=== PATIENT | female | born 1990 | race Caucasian/White ===

== ENCOUNTER 2017-06-05 20:37 | Inpatient (IN) ==
[2017-06-05 22:38] LABS: MANUAL DIFF NEEDED? NO
[2017-06-05 22:47] LABS: BASO% 0.1 % (0.0-0.8); EOS# 0.07 X1000 (0.0-0.7); EOS% 0.5 % (0.0-10.0); HEMATOCRIT 31.7 % (37.0-47.0); HEMOGLOBIN 10.9 g/dL (12.0-16.0); IMM GRAN# 0.09 X1000 (0.0-0.04); IMM GRAN% 0.6 % (0.0-0.5); LYMPH# 2.43 X1000 (1.2-3.4); LYMPH% 17.1 % (20.5-51.1); MCH 32.4 PG (27-31); MCHC 34.4 g/dL (33-37); MCV 94.3 FL (81-99); MONO# 0.84 X1000 (0.11-0.59); MONO% 5.9 % (1.7-9.3); MPV 11.8 FL (7.4-10.4); NEUT% 75.8 % (42.2-75.2); PLT 151 X1000 (130-400); RBC 3.36 XMIL (4.2-5.4)
[2017-06-05] MEDS ORDERED: ZOFRAN IV ONE (22:57)
[2017-06-05] MEDS ORDERED: STADOL IV ONE (22:57)
[2017-06-05] MEDS ORDERED: LR 1,000 ML IV ONE (23:03)
[2017-06-06 02:20] LABS: MANUAL DIFF NEEDED? NO
[2017-06-06 02:31] LABS: BASO% 0.1 % (0.0-0.8); EOS# 0.05 X1000 (0.0-0.7); EOS% 0.4 % (0.0-10.0); HEMATOCRIT 30.6 % (37.0-47.0); HEMOGLOBIN 10.4 g/dL (12.0-16.0); IMM GRAN# 0.09 X1000 (0.0-0.04); IMM GRAN% 0.6 % (0.0-0.5); LYMPH# 2.12 X1000 (1.2-3.4); LYMPH% 15.1 % (20.5-51.1); MCH 32.3 PG (27-31); MONO# 0.83 X1000 (0.11-0.59); MONO% 5.9 % (1.7-9.3); MPV 11.8 FL (7.4-10.4); NEUT% 77.9 % (42.2-75.2); PLT 129 X1000 (130-400); RBC 3.22 XMIL (4.2-5.4)
[2017-06-06 02:49] LABS: AGAP 11; ALBUMIN 3.3 g/dL (3.5-5.0); ALKALINE PHOSPHATASE 75 U/L (32-104); BUN 6 mg/dL (8-22); CALCIUM 8.5 mg/dL (8.8-10.2); CHLORIDE 106 mmol/L (98-107); COSMO 272; GOT 14 U/L (10-30); GPT 11 U/L (10-36); POTASSIUM 3.6 mmol/L (3.5-5.1); SODIUM 137 mmol/L (136-145); TCO2 20 mmol/L (25-35); TOTAL BILIRUBIN < 0.15 mg/dL (0.20-1.00); TOTAL PROTEIN 5.8 g/dL (6.3-8.3)
[2017-06-06] MEDS ORDERED: STADOL IV ONE (03:37)
[2017-06-06] MEDS: LR 1,000 ML IV SCH ×2 (04:19→20:48)
[2017-06-06] MEDS: CELESTONE SOLUSPAN IM ONE (04:19)
[2017-06-06 06:31] LABS: BASO% 0.1 % (0.0-0.8); EOS# 0.04 X1000 (0.0-0.7); EOS% 0.3 % (0.0-10.0); HEMATOCRIT 31.8 % (37.0-47.0); HEMOGLOBIN 10.5 g/dL (12.0-16.0); IMM GRAN# 0.06 X1000 (0.0-0.04); IMM GRAN% 0.4 % (0.0-0.5); LYMPH# 1.34 X1000 (1.2-3.4); LYMPH% 8.8 % (20.5-51.1); MANUAL DIFF NEEDED? YES; MCH 31.3 PG (27-31); MCV 94.9 FL (81-99); MONO# 0.58 X1000 (0.11-0.59); MONO% 3.8 % (1.7-9.3); MPV 11.7 FL (7.4-10.4); NEUT% 86.6 % (42.2-75.2); PLT 143 X1000 (130-400); RBC 3.35 XMIL (4.2-5.4)
[2017-06-06 06:47] LABS: LYMPHS 4 % (21-51)
[2017-06-06] MEDS: ZOFRAN IV PRN (09:01)
[2017-06-06] MEDS: STADOL IV PRN ×3 (09:02→20:48)
--- NOTE | 2017-06-06 11:33 | HISTORY AND PHYSICAL ---
DIAGNOSES: 1. 33 and 6/7th weeks . 2. Possible partial abruption. SUMMARY: Bailee Pope is a 26-year-old, 3, para 0-1-1-1. She previously had a section at 33 weeks for preeclampsia. She was seen in Labor and Delivery on 06/05/2017 after she had an elevated blood pressure at [facility]. She came to Labor and Delivery for evaluation. Her uric acid was 3.1. AST 15, ALT 11. Her platelet count was a 141,000, and her hemoglobin and hematocrit was 11.2/33.3. Urinalysis showed a trace of protein. Her blood pressures were stable and it was more suspicious of -induced hypertension than preeclampsia, and she was discharged to follow up in the office. Shortly after she went home, she sat on the toilet to have a bowel movement and had a sudden gush of blood. She returned to Labor and Delivery immediately. At that time, she was not having any contractions and heart tones showed accelerations with variability. No decelerations were noted. Her abdomen was tender to palpation. The patient was extremely anxious at this time. A Rom + test was performed which was positive; however, literature research shows that rom + test should not be performed when there is gross blood as you get false/positives. I did an ultrasound which showed vertex presentation and normal amniotic fluid level. Her cervix is closed, 80% effaced , and was vertex at 0 station. We admitted her for evaluation and her initial H and H was 10.9/31.7. Platelet count 151,000 and fibrinogen 441. Four hours later, hemoglobin and hematocrit was 10.4/30.6, platelets 129,000 and fibrinogen 389. AST was 14. ALT 11 at this time. She continued to have some pain and complaints, however, no contractions were noted. Her abdomen is nontender on palpation. There are no signs of distress. I have repeated the labs once again this morning with hemoglobin and hematocrit being 10.5/31.8. Platelet count is 143,000. Fibrinogen is 433. She is having some occasional contractions. Her last examination did not show any cervical change. heart tones remained category I. There are no decelerations with contractions. She is being admitted for further evaluation. My working diagnosis is a partial placental abruption. We have given her steroids, and she is blood type O-negative, and I am going to give her a dose of RhoGAM. PAST MEDICAL HISTORY: She has had a previous section for preeclampsia. Otherwise, no chronic medical or surgical illnesses. CURRENT MEDICATIONS: vitamins. ALLERGIES: None. PHYSICAL EXAMINATION: GENERAL: Shows an anxious female. VITAL SIGNS: Stable. She is afebrile. CARDIOVASCULAR: Regular rate and rhythm without murmurs, rubs, or gallops. PULMONARY: Clear. BREASTS: No masses. ABDOMEN: Nontender. Cervix is as above. EXTREMITIES: No clubbing, edema, or cyanosis. IMPRESSION: Possible partial abruption. PLAN: We will continue to monitor her. We will hopefully get a second dose of betamethasone, and I am going to go ahead and give her RhoGAM. She was having some mild contractions and I do not feel comfortable tocolyzing. If there are signs of distress or if she begins bleeding heavy again, we will proceed with repeat . cc: Tyshawn Rushing MD MTDD
[2017-06-06 14:06] LABS: BASO% 0.1 % (0.0-0.8); HEMATOCRIT 34.4 % (37.0-47.0); HEMOGLOBIN 11.6 g/dL (12.0-16.0); IMM GRAN% 0.5 % (0.0-0.5); LYMPH# 1.33 X1000 (1.2-3.4); LYMPH% 6.4 % (20.5-51.1); MANUAL DIFF NEEDED? YES; MCH 32.4 PG (27-31); MCHC 33.7 g/dL (33-37); MCV 96.1 FL (81-99); MONO% 2.4 % (1.7-9.3); MPV 11.7 FL (7.4-10.4); NEUT% 90.6 % (42.2-75.2); PLT 162 X1000 (130-400); RBC 3.58 XMIL (4.2-5.4)
[2017-06-06 14:11] LABS: LYMPHS 4 % (21-51)
[2017-06-06] MEDS ORDERED: AMBIEN PO PRN (19:08)
[2017-06-06] MEDS: AMBIEN PO PRN (21:41)
[2017-06-07] MEDS: CELESTONE SOLUSPAN IM ONE (04:40)
[2017-06-07 05:58] LABS: MANUAL DIFF NEEDED? NO
[2017-06-07 06:04] LABS: BASO% 0.1 % (0.0-0.8); EOS# 0.01 X1000 (0.0-0.7); EOS% 0.1 % (0.0-10.0); HEMATOCRIT 32.6 % (37.0-47.0); HEMOGLOBIN 10.9 g/dL (12.0-16.0); IMM GRAN% 0.5 % (0.0-0.5); LYMPH# 1.96 X1000 (1.2-3.4); MCH 32.2 PG (27-31); MCHC 33.4 g/dL (33-37); MCV 96.2 FL (81-99); MONO# 1.38 X1000 (0.11-0.59); MONO% 7.1 % (1.7-9.3); MPV 12.3 FL (7.4-10.4); NEUT% 82.2 % (42.2-75.2); PLT 177 X1000 (130-400); RBC 3.39 XMIL (4.2-5.4)
[2017-06-07] MEDS: STADOL IV PRN ×4 (07:21→22:39)
[2017-06-07] MEDS: LR 1,000 ML IV SCH (09:13)
[2017-06-07] MEDS: PEPCID PO SCH (12:51)
[2017-06-07] MEDS ORDERED: LR 1,000 ML IV SCH (16:26)
[2017-06-07] MEDS ORDERED: BICITRA PO ONE (18:06)
[2017-06-07] MEDS: ZOFRAN IV PRN (22:39)
[2017-06-07] MEDS: AMBIEN PO PRN (22:39)
[2017-06-08] MEDS: PEPCID PO SCH (01:42)
[2017-06-08] MEDS: STADOL IV PRN ×3 (01:48→09:42)
[2017-06-08] MEDS ORDERED: PRECARE PO ONE ×2 (07:34→10:00)
[2017-06-08] MEDS ORDERED: PERICOLACE PO ONE ×2 (07:34→10:00)
[2017-06-08] MEDS ORDERED: MILK OF MAGNESIA PO ONE (10:53)
[2017-06-08 11:41] VITALS: BP 128/78
== END 2017-06-08 14:10 | disposition home or self-care (01) ==
LOC: P.NBC 20:37 → P.LD 20:38 → P.DIRADM 20:40 → INTOOBSV 20:40 → OBSVTOIN 20:40 → P.LD 06-06 14:59 → EDCLIBED 06-06 15:00 → P.NBC 06-08 14:10 → UNDODISIN 06-08 14:10 → P.LD 06-11 15:11 → P.DIRADM 06-11 15:12
PROVIDERS: ADMIT Obstetrics & Gynecology; ATTEND Obstetrics & Gynecology

== ENCOUNTER 2017-06-09 06:43 | Inpatient (IN) ==
[2017-06-09] MEDS ORDERED: BRETHINE SUBQ ONE (07:21)
[2017-06-09 07:24] LABS: URINE SOURCE VOIDED
[2017-06-09 07:26] LABS: COLOR YELLOW
[2017-06-09 07:27] LABS: BILIRUBIN URINE NEGATIVE (NEGATIVE); CLARITY CLOUDY (CLEAR); GLUCOSE URINE NEGATIVE (NEGATIVE); SP GRAVITY URINE 1.005
[2017-06-09 07:28] LABS: BLOOD URINE 4+ (NEGATIVE); LEUKOCYTES URINE 1+ (NEGATIVE); NITRITE URINE NEGATIVE (NEGATIVE); PROTEIN URINE NEGATIVE (NEGATIVE); UROBILINOGEN URINE NORMAL
[2017-06-09] MEDS ORDERED: REGLAN PO ONE (07:46)
[2017-06-09] MEDS ORDERED: PEPCID PO ONE (07:46)
[2017-06-09] MEDS: LR 1,000 ML IV SCH ×2 (08:13→08:15)
[2017-06-09] MEDS ORDERED: BICITRA PO ONE (08:15)
[2017-06-09] MEDS ORDERED: PEPCID IV ONE (08:15)
[2017-06-09] MEDS ORDERED: CYTOTEC PO PRN (08:19)
[2017-06-09] MEDS ORDERED: DEMEROL PO PRN ×2 (08:19)
[2017-06-09] MEDS ORDERED: PITOCIN 20 UNITS/LR 20 UNITS/1,000 ML IV.SOLN IV ONE (08:19)
[2017-06-09] MEDS ORDERED: BOOSTRIX VACCINE IM ONE (08:19)
[2017-06-09] MEDS ORDERED: MYLICON PO PRN (08:19)
[2017-06-09] MEDS ORDERED: PERCOCET-5 PO PRN (08:19)
[2017-06-09] MEDS ORDERED: PITOCIN IM PRN (08:19)
[2017-06-09] MEDS ORDERED: DULCOLAX PR PRN (08:19)
[2017-06-09] MEDS ORDERED: HYDROXYZINE IM PRN (08:19)
[2017-06-09] MEDS ORDERED: DEMEROL IM PRN (08:19)
[2017-06-09] MEDS ORDERED: PHENERGAN IM PRN (08:19)
[2017-06-09] MEDS ORDERED: M-M-R II VACCINE SUBQ ONE (08:19)
[2017-06-09] MEDS: KEFZOL 1 GM/D5W 1 GM/50 ML IVPB IV PRN ×2 (08:29→08:54)
[2017-06-09 08:30] LABS: MANUAL DIFF NEEDED? NO
[2017-06-09] MEDS ORDERED: DURAMORPH ONE (08:31)
[2017-06-09 08:32] LABS: BASO% 0.3 % (0.0-0.8); EOS# 0.05 X1000 (0.0-0.7); EOS% 0.4 % (0.0-10.0); HEMATOCRIT 31.9 % (37.0-47.0); HEMOGLOBIN 10.9 g/dL (12.0-16.0); IMM GRAN# 0.36 X1000 (0.0-0.04); IMM GRAN% 2.6 % (0.0-0.5); LYMPH# 3.11 X1000 (1.2-3.4); LYMPH% 22.9 % (20.5-51.1); MCH 32.2 PG (27-31); MCHC 34.2 g/dL (33-37); MCV 94.4 FL (81-99); MONO# 1.37 X1000 (0.11-0.59); MONO% 10.1 % (1.7-9.3); MPV 11.8 FL (7.4-10.4); NEUT% 63.7 % (42.2-75.2); PLT 140 X1000 (130-400); RBC 3.38 XMIL (4.2-5.4)
[2017-06-09 08:43] LABS: UR AMPHETAMINES QUAL NONE DETECTED (NONE DETECT); UR BARBITUATES QUAL NONE DETECTED (NONE DETECT); UR BENZODIAZEPIN QUAL NONE DETECTED (NONE DETECT); UR CANNABINOIDS QUAL NONE DETECTED (NONE DETECT); UR COCAINE QUAL NONE DETECTED (NONE DETECT); UR MDMA QUAL NONE DETECTED (NONE DETECT); UR METHADONE QUAL NONE DETECTED (NONE DETECT); UR METHAMPHETAMINE QUAL NONE DETECTED (NONE DETECT); UR OPIATES QUAL NONE DETECTED (NONE DETECT); UR OXYCODONE QUAL NONE DETECTED (NONE DETECT); UR PCP QUAL NONE DETECTED (NONE DETECT); UR TCA QUAL NONE DETECTED (NONE DETECT)
--- NOTE | 2017-06-09 08:55 | HISTORY AND PHYSICAL ---
HISTORY OF PRESENT ILLNESS: The patient is a 26-year-old female 3, para 1-0-1-1 who has an EDC putting her at 34-1/2 weeks. She comes in at this time in labor for repeat for delivery. She had a previous at 33 weeks for severe -induced hypertension. She has been in labor and delivery over the weekend with increasing pain, bleeding, irregular contractions, and was noted to be closed at that time. She comes in at this time with contractions, much more pain, and noted to be 3 cm dilated. She is, therefore, admitted at this time for repeat for delivery. She did receive steroids this weekend because of her contractions of prematurity. She denies any other difficulties. She did have diet-controlled gestational diabetes, also, during this . PAST MEDICAL HISTORY: for severe -induced hypertension and HELLP syndrome. MEDICINES: vitamins. ALLERGIES: None. PHYSICAL EXAMINATION: GENERAL: Well-developed female. HEENT: Benign. NECK: Supple. LUNGS: Clear. CARDIOVASCULAR: Regular rate and rhythm. ABDOMEN: Soft, nontender. EXTREMITIES: Without clubbing, cyanosis, or edema. ASSESSMENT AND PLAN: A 34-1/2-week intrauterine , previous section in labor admitted at this time for repeat section for delivery. Questions were answered. Risks were explained. cc: Marlon Li MD
[2017-06-09 09:10] LABS: ALBUMIN 3.6 g/dL (3.5-5.0); ALKALINE PHOSPHATASE 86 U/L (32-104); DIRECT BILIRUBIN < 0.20 mg/dL (0.00-0.20); GOT 19 U/L (10-30); GPT 14 U/L (10-36); TOTAL PROTEIN 6.4 g/dL (6.3-8.3)
[2017-06-09] MEDS ORDERED: PITOCIN ONE (09:22)
[2017-06-09] MEDS ORDERED: NEO-SYNEPHRINE ONE (09:23)
[2017-06-09] MEDS ORDERED: BENADRYL IV PRN (09:59)
[2017-06-09] MEDS ORDERED: ZOFRAN ODT PO PRN (09:59)
[2017-06-09] MEDS ORDERED: NARCAN INJ PRN (09:59)
[2017-06-09] MEDS ORDERED: ZOFRAN IV PRN ×2 (09:59)
--- NOTE | 2017-06-09 10:00 | OPERATIVE NOTE ---
PROCEDURE DATE : 06/09/2017 SURGEON: Dr. Marlon Li PREOPERATIVE DIAGNOSES: 1. 34 week intrauterine . 2. Previous section. 3. Labor. POSTOPERATIVE DIAGNOSES: 1. 34 week intrauterine . 2. Previous section. 3. Labor. 4. Placental abruption. PROCEDURE PERFORMED: Repeat low transverse section. ANESTHESIA: Spinal. FINDINGS: The patient had a male born, weight 5 pounds 8 ounces, Apgars were 8 and 8. The patient did have some clot inside the uterus and by the placenta, consistent with placental abruption, at best probably 20% to 25%. DESCRIPTION OF PROCEDURE: The patient was taken to the operating room and underwent spinal anesthesia. She was given Ancef IV. She was prepped and draped in sterile fashion. Kim catheter was inserted in the bladder. Pump hose and stockings were place. We made a Pfannenstiel skin incision at previous incision site, sharply dissected down to the fascia. The fascia was dissected off the rectus muscle. The peritoneum was entered and dissected down. We created the bladder flap. Low transverse incision was made. She was noted to have some blood in between the amniotic sac and the uterus at this time and old clot. The was delivered using fundal pressure. We allowed the cord to not be clamped for about a minute and made sure we moved some of the blood into the fetus because of the premature size and abruption pattern. At this time the cord was clamped, and the baby was handed to pediatrics who were in attendance. Cord blood was obtained. Placenta was removed and sent to pathology for identification. Again, it looked as though she had a partial abruption going on in the anterior aspect of the placenta. The uterus was cleaned with a clean lap. Incision was closed with #1 chromic in an interlocking fashion. The uterus was put back in its anatomic position. Good hemostasis was noted throughout after all pedicles were inspected and irrigation was done. The rectus muscle was closed with 0 chromic suture. Hemostasis was maintained with Bovie. Fascia was closed with #1 Vicryl. Hemostasis was maintained with the Bovie, and the skin was closed with 4-0 Biosyn and Steri-Strips. Estimated blood loss is 500 mL. Mother and doing well at this time. cc: Marlon Li MD
[2017-06-09] MEDS ORDERED: TORADOL ONE (10:01)
[2017-06-09] MEDS: TORADOL IV PRN ×3 (10:11→22:39)
[2017-06-09] MEDS: MYLICON PO SCH ×4 (12:08→20:33)
[2017-06-09] MEDS: MORPHINE IV PRN ×4 (12:17→22:51)
[2017-06-09] MEDS: HYDROXYZINE PO PRN ×2 (18:42→22:51)
[2017-06-09] MEDS: PITOCIN 10 UNITS/LR 10 UNIT/1,000 ML IV.SOLN IV SCH (18:43)
[2017-06-09] MEDS: PERICOLACE PO SCH (20:33)
[2017-06-09] MEDS: AMBIEN PO PRN (22:39)
[2017-06-10] MEDS: PERCOCET-10 PO PRN ×6 (02:33→22:06)
[2017-06-10] MEDS: PITOCIN 10 UNITS/LR 10 UNIT/1,000 ML IV.SOLN IV SCH (02:37)
[2017-06-10] MEDS: TORADOL IV PRN (04:32)
[2017-06-10 06:10] LABS: HEMATOCRIT 29.5 % (37.0-47.0); MCH 31.9 PG (27-31); MCHC 33.9 g/dL (33-37); MCV 94.2 FL (81-99); MPV 12.7 FL (7.4-10.4); RBC 3.13 XMIL (4.2-5.4)
[2017-06-10] MEDS ORDERED: LR 1,000 ML IV SCH (08:19)
[2017-06-10] MEDS: MYLICON PO SCH ×4 (08:32→20:14)
[2017-06-10] MEDS: MOTRIN PO PRN ×2 (10:36→17:56)
[2017-06-10] MEDS ORDERED: PNEUMOVAX 23 IM ONE (19:15)
[2017-06-10] MEDS: PERICOLACE PO SCH (20:14)
[2017-06-10] MEDS: AMBIEN PO PRN (22:06)
[2017-06-11] MEDS: PERCOCET-10 PO PRN ×4 (02:11→15:18)
[2017-06-11] MEDS: MOTRIN PO PRN ×2 (02:11→11:39)
[2017-06-11 07:45] VITALS: BP 138/93
[2017-06-11] MEDS: MYLICON PO SCH ×4 (07:51→15:18)
--- NOTE | 2017-06-11 10:11 | DISCHARGE SUMMARY ---
ADMISSION DATE: 06/09/2017 DISCHARGE DATE: 06/11/2017 ADMITTING DIAGNOSES: 1. A 34-and half week . 2. Pre-term labor. 3. Previous . PRINCIPAL DIAGNOSES: 1. A 34-and crum week . 2. Pre-term labor. 3. Previous . 4. Placental abruption. PROCEDURE: Repeat . SUMMARY: Bailee Pope is a 26-year-old, 3, para 1-0-1-1, who had her first delivery at 33 weeks due to preeclampsia and HELLP syndrome. She had been in the hospital over the weekend with bleeding and felt that she had a small abruption. She was discharged after several days of observation but returned having worsening pain and pre term labor. She was [address] Li therefore performed a repeat low transverse delivering a 5 pound 8 ounce male infant with Apgars of 8 at 1 minute and 8 at 5 minutes. There was a 20-25% abruption by his estimation. There were no intraoperative complications. Postoperatively, the patient has done well. She has remained afebrile. The vital signs have been stable. Laboratory evaluation showed an admission hemoglobin and hematocrit of 10.9/31.9 with a platelet count of 140,000. Discharge hemoglobin and hematocrit is 10/29.5, platelet count 139,000. On the day of discharge, cardiac and pulmonary examinations normal. Bowel and bladder function was normal. Incision was clean and dry. She is having scant vaginal bleeding. Mrs. Pope will be discharged today and we will see her back in the office in 1 week. Routine discharge instructions, activity limitations, and precautions were discussed. She will continue vitamins. We will send her home with Motrin and Percocet 10 #30 for postoperative pain reduction. cc: MD Marlon Portillo MD
== END 2017-06-11 16:10 | disposition home or self-care (01) ==
LOC: P.OPLD 06:43 → P.LD 06:44 → P.WC 11:39
PROVIDERS: ADMIT Obstetrics & Gynecology; ATTEND Obstetrics & Gynecology

== ENCOUNTER 2019-03-08 03:45 | Inpatient (IN) ==
[2019-03-08 05:12] LABS: BILIRUBIN URINE NEGATIVE (NEGATIVE); BLOOD URINE 1+ (NEGATIVE); CLARITY SL. CLOUDY (CLEAR); COLOR YELLOW; GLUCOSE URINE NEGATIVE (NEGATIVE); KETONE URINE 1+(Small) mg/dL (NEGATIVE); LEUKOCYTES URINE TRACE (NEGATIVE); NITRITE URINE NEGATIVE (NEGATIVE); PROTEIN URINE 2+(100 mg/dL) mg/dL (NEGATIVE); UROBILINOGEN URINE NORMAL
[2019-03-08 05:15] LABS: URINE BACTERIA 4+ /HFP; URINE RBC <10 /HPF (<10); URINE WBC <10 /HPF (<10)
[2019-03-08 05:17] LABS: URINE EPITHELIAL CELLS >10 /HPF (<10); URINE SOURCE CLEAN CATCH
--- NOTE | 2019-03-08 05:24 | PROVIDER DOCUMENTATION ---
HPI-Abdominal Pain/GI Problem - General Chief Complaint: Abdominal Pain Stated Complaint: VOMITING Time Seen by Provider: 03/08/19 05:13 Source: patient Allergies/Adverse Reactions: Patient Allergies Allergy/AdvReac Type Severity Reaction Status Date / Time No Known Allergies Allergy Verified 01/17/18 20:03 Home Medications: Home Medication List Medication Instructions Recorded Confirmed Last Taken Type NK [No Home Medications] 03/08/19 03/08/19 Unknown History - History of Present Illness-ABD Nature of Presenting Problems: thursday started to vomit and has been vomiting frequently no bm no blood no dsuria or hematuria no hematochezio no hematemesis Review of Systems - Adult - REVIEW OF SYSTEMS - ADULT Constitutional: reports: no symptoms reported Eyes: reports: no symptoms reported Ears, Nose, Mouth & Throat: reports: no symptoms reported Cardiovascular: reports: no symptoms reported Respiratory: reports: no symptoms reported Gastrointestinal: reports: see HPI Genitourinary: reports: no symptoms reported Musculoskeletal: reports: no symptoms reported Integumentary: reports: no symptoms reported Neurological: reports: no symptoms reported Psychiatric: reports: no symptoms reported Endocrine: reports: no symptoms reported Hematologic/Lymphatic: reports: no symptoms reported Allergic/Immunologic: reports: no symptoms reported Past History - Adult - PAST MEDICAL HISTORY-ADULT Review of Records: reports: Medications Reviewed Major Childhood Illnesses: reports: denies history Cardiovascular: reports: denies history Respiratory: reports: denies history Gastrointestinal: reports: denies history Obstetrical/Gynecological: reports: denies history Genitourinary: reports: kidney disease Musculoskeletal: reports: denies history Neurological: reports: denies history Endocrine/Immune: reports: denies history Other Conditions: reports: denies history - PRIOR SURGERIES/PROCEDURES Surgical/Procedure History: reports: - PRIOR HOSPITALIZATIONS Prior Hospitalizations: reports: none - IMMUNIZATION STATUS Childhood Immunizations: See Nurse Assessment Flu Vaccine: See Nurse Assessment - FAMILY HISTORY Family History: reviewed, not pertinent Physical Exam-General - PHYSICAL EXAM-ADULT Initial Vital Signs Reviewed: Yes - CONSTITUTIONAL General Appearance: moderate distress - EYES Eyes: PERRL/EOMI, pink conjunctivae - HEAD, EARS, NOSE, MOUTH & THROAT HENMT: normocephalic/atraumatic, moist mucous membranes, normal ENT inspection, pharynx normal - NECK Neck: full range of motion, supple - RESPIRATORY Respiratory: lungs clear, normal breath sounds, no pleuratic chest pain, no respiratory distress, no accessory muscle use - CARDIOVASCULAR Cardiovascular: regular rate, rhythm, no edema, no gallop, no murmur - GASTROINTESTINAL (ABDOMEN) Abdominal Exam: soft, other (BS decreased, tender RUQ) - MUSCULOSKELETAL Back Exam: normal inspection, no CVA tenderness, no vertebral tenderness Extremity: normal range of motion, non-tender - SKIN Integumentary: normal color, normal turgor, warm/dry - NEUROLOGIC Neurologic: lining scrubber II-XII nml as tested, grossly normal, no motor/sensory deficits - PSYCHIATRIC Psych/Mental Status: normal mood/affect, normal thought content, normal thought process, oriented x 3 Progress - PLAN OF CARE/RESULTS Progress/Plan/Lab Results: Vital Signs - 8 hr 03/08/19 03:54 Temperature 98.3 F Pulse Rate 113 H Respiratory Rate 20 Blood Pressure 162/119 O2 Sat by Pulse Oximetry 99 Bedside Urine ED: Urine Bedside Start: 03/08/19 04:06 Freq: ORDERED Status: Active Protocol: Activity Type Activity Date Activity User E-Sign Co-Sign Detail Recorded Client Recorded Date Recorded By Document 03/08/19 04:06 [id number] 03/08/19 04:27 [id number] 03/08/19 04:06 Point of Care [Bedside Point of Care] -Lot # [id number] - Results Negative -Control Line Visible? Yes Laboratory Results - last 24 hr 03/08/19 04:25 Urine Color YELLOW Urine Clarity SL. CLOUDY A Urine pH 6.0 Ur Specific [place] 1.020 Urine Protein 2+(100 mg/dL) A Urine Ketones 1+(Small) A Urine Blood 1+ A Urine Nitrite NEGATIVE Urine Bilirubin NEGATIVE Urine Urobilinogen NORMAL Urine WBC TRACE A Urine Glucose NEGATIVE Orders Category Date Time Status ED: Urine Bedside ORDERED Care 03/08/19 04:06 Active Saline Loc NOW Care 03/08/19 04:05 Active NPO Diet 03/08/19 04:09 Active AMYLASE [CHEM] Stat Lab 03/08/19 04:25 Ordered CBC WITH DIFF [HEME] Stat Lab 03/08/19 04:25 Results COMPREHENSIVE METABOLIC PANEL [CHEM] Stat Lab 03/08/19 04:25 Ordered LIPASE [CHEM] Stat Lab 03/08/19 04:[address] W/POSS RFLX CULT [URINALYSIS] Stat Lab 03/08/19 04:25 Results Result Diagrams: 03/08/19 05:17 03/08/19 05:17 - REASSESSMENT Reassessment #1 Time Reassessed: 09:32 (assumed care @ shift change. Has had constant RUQ pain, since Sat. N/V, not laura po intake. On exam, pt uncomfortable, BS are sl decreased, thender mod on RUQ, mild LLQ) Status: unchanged - CT/MRI 1 CT Study: Abdomen Impression: Abnormal (IMPRESSION: 1.Distended gallbladder. No evidence for pericholecystic inflammation. 2.Mildly distended fluid-filled small bowel left upper quadrant. This may be seen with enteritis. Clinical follow-up recommended. This exam was performed using automated exposure control, adjustment of mA or kV according to patient size, and/or use of iterative reconstruction technique. Electronically signed by Viry Sue 03/08/2019 8:31 AM) - CONSULTS/PCP/HOSPITALIST Notification #1 *Consult/PCP/Hospitalist*: Carole Time Discussed: 10:37 Reason/Comments: admit to him@ [facility] - CHANGE OF SHIFT REPORT (ED Provider) 1 Report Given and Care Transferred to:: Dr Causey 7:05 ct Time of Transfer: 06:59 Items Pending: Labs, CT/MRI Results Departure - Departure Date of Disposition Decision: 03/08/19 Time of Disposition Decision: 10:37 DIAGNOSIS: Cholecystitis, acute Disposition: ADMITTED INPATIENT 09 Certified Medical Emergency: Emergent Condition: Good Additional Freetext Instructions: ED Follow Up Instructions: You have been treated by a care provider in the Emergency Department. These instructions are being provided to you so you can have an understanding of how to care for yourself upon discharge. Upon discharge from the Emergency Department, you are responsible for making arrangements for follow-up care by a physician of your choice. Take all prescribed medications as directed. Return to the Emergency Department immediately for any new or worsening symptoms. You may call the Physician Referral phone number at [phone] to obtain a list of Physicians who are taking new patients. Referrals and Follow-Ups: Zaki Sandhu [Primary Care Provider] - - Critical Care Note This patient required my direct & personal management of CC.: No Attestation - Physician/ LAXMI Attestation Patient care was provided by Advanced Practice Provider:: No The physician spent face to face time with patient:: Yes Advanced Practice Provider documentation review:: Supervising physician onsite and consulted in the evaluation and care of this patient. The physician did have a face to face encounter with the patient.
[2019-03-08 05:38] LABS: BASO# 0.02 X1000 (0.0-0.2); BASO% 0.1 % (0.0-0.8); HEMOGLOBIN 16.1 g/dL (12.0-16.0); IMM GRAN# 0.05 X1000 (0.0-0.04); IMM GRAN% 0.2 % (0.0-0.5); LYMPH# 1.36 X1000 (1.2-3.4); LYMPH% 6.6 % (20.5-51.1); MCH 31.6 PG (27-31); MCHC 35.8 g/dL (33-37); MCV 88.4 FL (81-99); MONO# 1.92 X1000 (0.11-0.59); MONO% 9.4 % (1.7-9.3); MPV 11.3 FL (7.4-10.4); NEUT# 17.11 X1000 (1.4-6.5); NEUT% 83.7 % (42.2-75.2); PLT 272 X1000 (130-400); RBC 5.09 XMIL (4.2-5.4); RDW 12.5 % (11.5-14.5); WBC 20.46 X1000 (4.8-10.8)
[2019-03-08 05:50] LABS: ESTIMATED GFR > 60
[2019-03-08 06:00] LABS: AGAP 17; ALBUMIN 5.2 g/dL (3.5-5.0); ALKALINE PHOSPHATASE 83 U/L (32-104); AMYLASE 62 U/L (20-200); BUN 10 mg/dL (8-22); CALCIUM 10.4 mg/dL (8.8-10.2); CHLORIDE 89 mmol/L (98-107); COSMO 277; CREATININE 0.8 mg/dL (0.5-0.9); GLUCOSE 141 mg/dL (70-104); GOT 17 U/L (10-30); GPT 14 U/L (10-36); LIPASE 16 U/L (13-60); POTASSIUM 3.3 mmol/L (3.5-5.1); SODIUM 138 mmol/L (136-145); TCO2 32 mmol/L (25-35); TOTAL PROTEIN 8.3 g/dL (6.3-8.3)
[2019-03-08 06:08] LABS: BANDS 4 % (0-1); LYMPHS 8 % (21-51); MONO 4 % (1-9); POIKILOCYTOSIS 1+; SEGS 84 % (42-75)
[2019-03-08 06:09] LABS: LARGE PLATELETS OCCASIONAL; STOMATOCYTES 1+
[2019-03-08 06:23] LABS: UR AMPHETAMINES QUAL NONE DETECTED (NONE DETECT); UR BARBITUATES QUAL NONE DETECTED (NONE DETECT); UR BENZODIAZEPIN QUAL PRESUMPTIVE POSITIVE (NONE DETECT); UR CANNABINOIDS QUAL PRESUMPTIVE POSITIVE (NONE DETECT); UR COCAINE QUAL NONE DETECTED (NONE DETECT); UR METHADONE QUAL NONE DETECTED (NONE DETECT); UR METHAMPHETAMINE QUAL NONE DETECTED (NONE DETECT); UR OPIATES QUAL NONE DETECTED (NONE DETECT); UR OXYCODONE QUAL NONE DETECTED (NONE DETECT); UR PCP QUAL NONE DETECTED (NONE DETECT); UR PROPOXYPHENE QUAL NONE DETECTED (NONE DETECT); UR TCA QUAL NONE DETECTED (NONE DETECT)
[2019-03-08] MEDS ORDERED: PHENERGAN IV ONE (07:11)
[2019-03-08] MEDS ORDERED: SODIUM CHLORIDE 0.9% INJ ONE (07:11)
--- NOTE | 2019-03-08 08:34 | Diag Imaging Result Doc PS360 ---
EXAM: CT ABD/PELVIS W/IV CONT ONLY HISTORY: pain TECHNIQUE: Routine with IV contrast. No enteric contrast. COMPARISON: 07/04/2018 FINDINGS: Lung bases are unremarkable. Liver, spleen, pancreas, kidneys, and adrenal glands are unremarkable. The gallbladder is noted. No calcified gallstones. No pericholecystic inflammation by CT. Normal caliber aorta. No retroperitoneal or mesenteric lymphadenopathy Mildly prominent fluid-filled small bowel bowel left upper quadrant nonspecific. No free fluid or free air. Large bowel unremarkable. The partially visualized appendix is unremarkable. No secondary signs of acute appendicitis. Uterus and ovaries unremarkable by CT. IMPRESSION: 1.Distended gallbladder. No evidence for pericholecystic inflammation. 2.Mildly distended fluid-filled small bowel left upper quadrant. This may be seen with enteritis. Clinical follow-up recommended. This exam was performed using automated exposure control, adjustment of mA or kV according to patient size, and/or use of iterative reconstruction technique. Electronically signed by Viry Sue 03/08/2019 8:31 AM
--- NOTE | 2019-03-08 10:19 | Diag Imaging Result Doc PS360 ---
US GB < RUQ (LIMITED) - 03/08/2019 INDICATION: ruq pain TECHNIQUE: José scale, color Doppler, and duplex evaluation of the abdomen was performed. COMPARISON: None FINDINGS: The liver appears normal]. No focal masses are appreciated. The IVC and aorta appear normal. The pancreas is unremarkable. The gallbladder is free of stones and sludge has a normal caliber wall. The common bile duct measures 3.7 mm. The portal vein is patent with hepatopetal flow. The right kidney appears normal. There is no hydronephrosis. IMPRESSION: No acute abnormality. Electronically signed by Viry Sue 03/08/2019 10:17 AM
[2019-03-08] MEDS ORDERED: NS 1,000 ML IV ONE ×2 (10:27→11:06)
[2019-03-08] MEDS ORDERED: ZOSYN 3.375 GM in NS 50 ML IV ONE (10:36)
[2019-03-08] MEDS ORDERED: MORPHINE IV ONE (10:43)
[2019-03-08] MEDS ORDERED: ZOFRAN IV ONE (10:43)
--- NOTE | 2019-03-08 11:59 | Diag Imaging Result Doc PS360 ---
EXAM: CHEST-1 VIEW HISTORY: sepsis rule in TECHNIQUE: Chest single view COMPARISON: 09/10/2013 FINDINGS: The lungs are well expanded. The heart is not enlarged. The vessels are not distended. There are no infiltrates. No effusion identified. IMPRESSION: No pneumonia Electronically signed by Thad Barnhart 03/08/2019 11:56 AM
[2019-03-08] MEDS: MORPHINE IV PRN ×5 (12:42→22:17)
[2019-03-08] MEDS: ZOFRAN IV PRN ×2 (14:45→22:16)
--- NOTE | 2019-03-08 18:10 | HISTORY AND PHYSICAL ---
DATE: 03/08/2019 HISTORY OF PRESENT ILLNESS: This is a 28-year-old female who presents with epigastric abdominal discomfort since Thursday. Symptoms have persisted. She denies any fevers, jaundice. She has had some associated nausea with this but denies any bleeding. Bowel function has otherwise been normal. She came the ER where CT scan was obtained that showed a prominent gallbladder but no evidence of inflammation and some mild distended fluid loops in the left upper quadrant that were nonspecific. She had a subsequent abdominal ultrasound that showed a normal gallbladder with no other acute pathology. She was admitted for IV fluids, nausea. MEDICAL HISTORY: She does have a history of preeclampsia, as well as placental abruption. She has had C-sections twice for this. SURGICAL HISTORY: x2. SOCIAL HISTORY: She smokes occasionally. She does take Xanax and THC recreationally and as a form of self-medication. She has 2 children. 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 FAMILY HISTORY: Reviewed and noncontributory. REVIEW OF SYSTEMS: Ten point negative. PHYSICAL EXAMINATION: Vital signs: Temperature 98.1 degrees. No fevers documented. She was tachycardic but this has improved with hydration. Pulse 65, blood pressure 128/77, oxygen saturation 99%. General: She is alert. She is tearful on exam and very anxious-appearing. HEENT: No scleral icterus. No cervical mass. Cardiovascular: Normal rate. Pulmonary: No increased work of breathing. Abdomen: Soft. There is no tenderness. No guarding. No peritonitis. Integument: Warm and dry without jaundice. Psychiatric: Very anxious. Neurologic: No gross deficits. Lymphatic: There is no cervical, axillary, or inguinal adenopathy. Peripheral vascular: No lower extremity edema. LABORATORY: White count is 20, hematocrit 45, platelets 272,000. Creatinine is 0.8. Glucose is elevated 141. Calcium is 10.4. LFTs are normal. Lipase is normal. Lactate is normal. Urinalysis is positive for epithelial cells, white blood cells. UDS positive for benzodiazepines and cannabinoids. Blood cultures are pending. Urine culture is pending. CT scan and abdominal ultrasound as noted in her HPI. Her chest x-ray is clear. ASSESSMENT AND PLAN: This is a 28-year-old female with nonspecific epigastric abdominal discomfort. Nothing obvious on her scans. Some question of gallbladder dysfunction. We will obtain a HIDA scan. If this is negative, I worry that she could have peptic ulcer disease, although she does have a lot of risk factors other than smoking. I have discussed the course of action. She is on antibiotics, IV fluids, antiemetics, and pain medication. We will get a HIDA scan. If this is unrevealing, she needs an EGD. Otherwise, we will continue to monitor her closely tonight. She can have sips of water for comfort. Otherwise, I have recommended NPO. cc: Inga Lam MD
[2019-03-08] MEDS: LR 1,000 ML IV SCH (18:40)
[2019-03-08] MEDS: SODIUM CHLORIDE 0.9% INJ SCH (18:40)
[2019-03-08] MEDS: PROTONIX IV SCH (18:40)
[2019-03-09] MEDS: MORPHINE IV PRN ×6 (00:32→22:42)
[2019-03-09] MEDS: LR 1,000 ML IV SCH ×4 (03:30→19:05)
[2019-03-09 06:37] LABS: HEMATOCRIT 37.8 % (37.0-47.0); HEMOGLOBIN 12.7 g/dL (12.0-16.0); MCH 31.9 PG (27-31); MCHC 33.6 g/dL (33-37); MPV 11.1 FL (7.4-10.4); RBC 3.98 XMIL (4.2-5.4); RDW 13.2 % (11.5-14.5); WBC 10.25 X1000 (4.8-10.8)
[2019-03-09] MEDS: PROTONIX IV SCH ×2 (06:53→19:10)
[2019-03-09 07:03] LABS: AGAP 9; ALB/GLOB RATIO 1.5; ALBUMIN 3.7 g/dL (3.5-5.0); ALKALINE PHOSPHATASE 55 U/L (32-104); BUN 9 mg/dL (8-22); CALCIUM 8.4 mg/dL (8.8-10.2); CHLORIDE 101 mmol/L (98-107); COSMO 278; CREATININE 0.6 mg/dL (0.5-0.9); ESTIMATED GFR > 60; GLUCOSE 102 mg/dL (70-104); GOT 15 U/L (10-30); GPT 14 U/L (10-36); MAGNESIUM 1.9 mg/dL (1.5-2.7); POTASSIUM 3.1 mmol/L (3.5-5.1); SODIUM 140 mmol/L (136-145); TCO2 30 mmol/L (25-35); TOTAL BILIRUBIN 0.36 mg/dL (0.20-1.00); TOTAL PROTEIN 6.2 g/dL (6.3-8.3)
--- NOTE | 2019-03-09 08:37 | GENERAL SURGERY PROGRESS NOTE ---
DATE: 03/09/2019 SUBJECTIVE: Continues to have some epigastric discomfort. No fevers. No tachycardia. OBJECTIVE: Vitals: Blood pressure 129/64. Abdomen: Soft, nontender, nondistended. Integument: Warm and dry. LABS: White count down to 10, hematocrit 37. Creatinine 0.6. LFTs remain normal. ASSESSMENT AND PLAN: This is a female with epigastric discomfort of unclear etiology. Ultrasound is normal. CT scan showed a prominent gallbladder. We will get a HIDA scan today. If this is normal, she needs an EGD and we most likely will plan on EGD prior to cholecystectomy. We discussed these plans with the patient. It is also possible that this is an enteritis type picture. She is on proton pump inhibitor b.i.d., Zofran, morphine, and lactated Ringer's. cc: Inga Lam MD
--- NOTE | 2019-03-09 15:47 | Diag Imaging Result Doc PS360 ---
EXAM: HIDA SCAN W/ EJECTION FRACTION INDICATION: Abdominal pain TECHNIQUE: 4.1 mCi of technetium 99 Choletec was administered intravenously and images were obtained in usual fashion. COMPARISON: None. FINDINGS: There was normal immediate hepatocellular uptake after administration. Activity is seen in the gallbladder beginning at about nine minutes post administration. Activity is seen in small bowel beginning at 17 minutes post administration. 8 ounces of liquid fatty meal was then administered orally. There was no significant gallbladder emptying one hour after administration. IMPRESSION: No significant gallbladder emptying after administration of fatty meal suggesting possible gallbladder hypokinesis. Electronically signed by Tyshawn Winter 03/09/2019 3:45 PM
[2019-03-09] MEDS: ZOFRAN IV PRN ×2 (15:55→22:42)
[2019-03-10] MEDS: LR 1,000 ML IV SCH ×3 (02:04→17:49)
[2019-03-10] MEDS: MORPHINE IV PRN ×3 (02:07→12:13)
[2019-03-10] MEDS: SODIUM CHLORIDE 0.9% INJ SCH (07:01)
[2019-03-10] MEDS: PROTONIX IV SCH ×2 (07:01→17:47)
[2019-03-10] MEDS: ZOFRAN IV PRN ×2 (09:22→17:47)
[2019-03-10] MEDS: XANAX PO PRN (16:02)
[2019-03-10] MEDS: CYMBALTA PO SCH (16:02)
[2019-03-10] MEDS: DILAUDID IV PRN ×3 (16:16→22:16)
--- NOTE | 2019-03-10 19:59 | GENERAL SURGERY PROGRESS NOTE ---
DATE: 03/10/2019 SUBJECTIVE: She had her HIDA scan yesterday that showed a depressed ejection fraction. She continues to complain of abdominal discomfort. OBJECTIVE: She is very tearful. No jaundice. No fevers. No tachycardia. ASSESSMENT AND PLAN: A 28-year-old female with biliary dyskinesia, epigastric abdominal discomfort. It is possible she has an ulcer with some gastritis versus her gallbladder being the main factor. I have discussed options including observation of her gallbladder, performing an EGD or performing concurrent EGD and colonoscopy. We discussed risk of bleeding, infection, bile leak, damage to surrounding structures, conversion to open, perforation. She understands all this and has elected to undergo laparoscopic cholecystectomy with EGD tomorrow. We did discuss the possibility that she has persistent symptoms despite this at which point we will have to continue our workup, although there is no other obvious source. I have resumed Cymbalta as well as her Xanax as she is for the most part crying every time I have spoken with her, and I have switched her morphine to Dilaudid to hopefully obtain some better pain control. We have her on IV fluids. We will continue to follow her closely. cc: Inga Lam MD
[2019-03-11] MEDS: XANAX PO PRN ×2 (01:05→21:12)
[2019-03-11] MEDS: LR 1,000 ML IV SCH ×4 (01:40→23:21)
[2019-03-11] MEDS: ZOFRAN IV PRN ×2 (01:40→21:13)
[2019-03-11] MEDS: DILAUDID IV PRN ×6 (01:40→23:23)
[2019-03-11] MEDS: PROTONIX IV SCH ×2 (06:10→17:39)
[2019-03-11] MEDS: CYMBALTA PO SCH (08:22)
[2019-03-11] MEDS ORDERED: DIPRIVAN 1% ONE ×2 (10:47→15:00)
[2019-03-11] MEDS ORDERED: XYLOCAINE-MPF 2% ONE (15:00)
[2019-03-11] MEDS ORDERED: ROBINUL ONE ×2 (15:00→16:28)
[2019-03-11] MEDS ORDERED: ZEMURON ONE (15:00)
[2019-03-11] MEDS ORDERED: FENTANYL ONE (15:01)
[2019-03-11] MEDS ORDERED: VERSED ONE ×2 (15:02→15:36)
[2019-03-11] MEDS ORDERED: SODIUM CHLORIDE 0.9% ONE (15:36)
[2019-03-11] MEDS ORDERED: MARCAINE 0.25% PF/EPI 1:200,000 ONE (15:36)
[2019-03-11] MEDS ORDERED: LR 1,000 ML ONE (15:36)
[2019-03-11] MEDS ORDERED: PEPCID ONE (15:38)
[2019-03-11] MEDS ORDERED: KEFZOL 1 GM/D5W 1 GM/50 ML IVPB ONE (15:42)
[2019-03-11] MEDS ORDERED: ZOFRAN ONE (16:17)
[2019-03-11] MEDS ORDERED: DECADRON ONE (16:17)
[2019-03-11] MEDS ORDERED: NEOSTIGMINE ONE (16:28)
--- NOTE | 2019-03-11 16:57 | Diag Imaging Result Doc PS360 ---
EXAM: OPERATIVE CHOLANGIOGRAM INDICATION: GALLBLADDER TECHNIQUE: COMPARISON: None. FINDINGS: A single spot fluoroscopic image of the opacified common bile duct was provided, which was performed intraoperatively by Dr. Osmin Lam during cholecystectomy. The common bile duct appears normal in caliber with no discrete filling defects or strictures identified. IMPRESSION: As above. Please correlate with live fluoroscopic imaging. Electronically signed by Tyshawn Winter 03/11/2019 4:55 PM
[2019-03-11] MEDS ORDERED: CARAFATE LIQUID PO SCH (17:39)
--- NOTE | 2019-03-11 18:22 | OPERATIVE NOTE ---
PROCEDURE DATE: 03/11/2019 PREOPERATIVE DIAGNOSES: 1. Epigastric abdominal discomfort. 2. Biliary dyskinesia. POSTOPERATIVE DIAGNOSES: 1. Biliary dyskinesia with chronic cholecystitis. 2. Esophagitis, moderate to severe with distal gastritis. PROCEDURE PERFORMED: 1. Laparoscopic cholecystectomy with cholangiogram. 2. Esophagogastroduodenoscopy with antral biopsy. ESTIMATED BLOOD LOSS: 10 mL. SPECIMENS: 1. Antral biopsy. 2. Gallbladder. INDICATION: This is a 28-year-old female, who has had abdominal discomfort and epigastric that has been persistent. Her ultrasound was normal. CT scan showed a prominent gallbladder but no other findings. The HIDA scan showed depressed ejection fraction. OPERATIVE FINDINGS: 1. There was esophagitis noted in the distal esophagus. There was no gastric mucosal ulcers, but there was some gastritis distally. The duodenum appeared normal. There did appear to be bilious reflux into the distal esophagus upon entry through the GE junction. 2. There was a thickened wall gallbladder with cholesterolosis consistent with chronic cholecystitis. 3. Interpretation of intraoperative cholangiogram showed rapid flow of contrast through a long cystic duct into a nondilated common bile duct and into the duodenum. Retrograde flow in the common hepatic and intrahepatic radicles appeared normal. Overall normal cholangiogram. OPERATIVE NOTE: Risks, benefits, alternatives discussed with patient. She consented to the procedure and seen preoperatively. Surgical site was confirmed. She was taken to the operating room placed in supine position. General anesthesia was induced without complication, all bony prominences were padded. Pre-incision antibiotics were administered. After time-out, a bite block was placed and we were able to easily intubate the upper esophagus, passed the scope down under direct visualization into the stomach, insufflating the stomach. We inspected all quadrants and a retroflexed view was performed. We then cannulated through the pylorus and duodenum through the 2nd portion, visualizing the proximal 3rd portion. Withdrew the scope, took antral biopsy. Noted hemostasis and withdrew our scope and noted the esophagitis type changes in the distal esophagus. We withdrew our scope after decompressing the stomach and there was no complication from this standpoint, then, her abdomen was prepped with chlorhexidine solution, draped in the usual fashion. After a time-out, we made a curvilinear infraumbilical incision, carried this down the fascia and incised the fascia. After insufflating the abdomen, through a Yoon trocar, we placed three 5 mm trocars, one at the epigastrium, one at the midclavicular line off the costal margin and one more laterally. The gallbladder was grasped. We stripped down some filmy adhesions and took down the peritoneum overlying the infundibulum cystic junction exposing this. The cystic artery coursed through this. We circumferentially dissected this out, establishing our critical view. The lower 3rd of the gallbladder with artery that coursed through this, with liver visualized through this triangle. We then placed a clip on the gallbladder side, made a ductotomy, performed cholangiogram with above findings. After satisfactory cholangiogram, we triply clipped the cystic duct, doubly clipped the artery and divided both and removed the gallbladder from the gallbladder fossa. Care was made to protect the liver. We irrigated that until clear. There was good closure of the cystic duct. No bile leaks. No bleeding. The gallbladder was placed in EndoCatch, brought out through the fascial incision, which was then closed with interrupted 0 Vicryl sutures. Skin closed with 4-0 Monocryl in subcuticular fashion. Dermabond was applied. Counts correct. She has awoken and transferred to recovery. There was no family. cc: Inga Lam MD
[2019-03-11] MEDS ORDERED: PERIDEX MT SCH (21:00)
[2019-03-11] MEDS: CARAFATE LIQUID PO SCH (23:23)
[2019-03-12] MEDS: DILAUDID IV PRN ×2 (02:51→08:40)
[2019-03-12] MEDS: CARAFATE LIQUID PO SCH ×2 (06:28)
[2019-03-12] MEDS: PROTONIX IV SCH (06:28)
--- NOTE | 2019-03-12 07:07 | GENERAL SURGERY PROGRESS NOTE ---
DATE: 03/12/2019 SUBJECTIVE: The patient seems to be doing better. She is not hurting as much as she was. OBJECTIVE: Vital Signs: The patient is currently afebrile. Her vital signs are stable. General: No acute distress. Cardiovascular: Regular rate and rhythm. Lungs: Grossly clear. Abdomen: Soft, appropriately tender. ASSESSMENT AND PLAN: A 28-year-old female status post EGD and laparoscopic cholecystectomy, which found cholecystitis with some gastritis. Postoperative state. At this time the patient seems to be doing well, so we will plan on discharge today. We will have her follow up with Dr. Lam. cc: MD Inga Pa MD
[2019-03-12 07:37] VITALS: BP 164/96
== END 2019-03-12 09:40 | disposition home or self-care (01) | DRG 419 ==
LOC: P.ED 03:45 → 4N 11:21
PROVIDERS: ADMIT Surgery; ATTEND Surgery
CPT/HCPCS: 36415; 71010; 71045; 74177; 74300; 76705; 78227; 80053; 80104; 80301; 80305; 81001; 81025; 82150; 83605; 83690; 83735; 85025; 85027; 87040; 87088; 88304; 88305; 88312; 94761; 96365; 96375; 99285; A9270; A9537; C1751; C9113; G0431; G0434; G0477; J0690; J1100; J1170; J2250; J2270; J2405; J2543; J2550; J3010; J7030; J7120; Q9966; Q9967; S0020; S0028; S0164

== ENCOUNTER 2019-05-16 13:04 | Inpatient (IN) ==
[2019-05-16] MEDS ORDERED: NS 1,000 ML IV ONE ×2 (13:25→20:40)
[2019-05-16] MEDS ORDERED: ZOFRAN IV ONE (13:25)
[2019-05-16] MEDS ORDERED: DILAUDID IV ONE ×2 (13:25→18:29)
[2019-05-16 13:58] LABS: URINE SOURCE CLEAN CATCH
[2019-05-16 14:04] LABS: BILIRUBIN URINE NEGATIVE (NEGATIVE); BLOOD URINE MODERATE (NEGATIVE); COLOR ORANGE; GLUCOSE URINE NEGATIVE (NEGATIVE); KETONE URINE 10 mg/dL (NEGATIVE); LEUKOCYTES URINE TRACE (NEGATIVE); NITRITE URINE NEGATIVE (NEGATIVE); PROTEIN URINE 30 mg/dL (NEGATIVE); SP GRAVITY URINE 1.017; TURBIDITY URINE TURBID (CLEAR); UROBILINOGEN URINE NORMAL (NORMAL)
[2019-05-16 14:05] LABS: URINE BACTERIA 1+ /HPF; URINE RBC <10 /HPF (<10); URINE WBC <10 /HPF (<10)
[2019-05-16 14:12] LABS: BASO# 0.03 X1000 (0.0-0.2); BASO% 0.2 % (0.0-0.8); EOS# 0.09 X1000 (0.0-0.7); EOS% 0.6 % (0.0-10.0); HEMATOCRIT 40.7 % (37.0-47.0); HEMOGLOBIN 14.3 g/dL (12.0-16.0); IMM GRAN# 0.09 X1000 (0.0-0.04); IMM GRAN% 0.6 % (0.0-0.5); LYMPH# 2.08 X1000 (1.2-3.4); MCH 31.6 PG (27-31); MCHC 35.1 g/dL (33-37); MCV 89.8 FL (81-99); MONO# 0.79 X1000 (0.11-0.59); MONO% 4.9 % (1.7-9.3); MPV 11.4 FL (7.4-10.4); NEUT% 80.7 % (42.2-75.2); PLT 252 X1000 (130-400); RBC 4.53 XMIL (4.2-5.4); RDW 12.2 % (11.5-14.5); WBC 15.98 X1000 (4.8-10.8)
[2019-05-16 14:15] LABS: AGAP 12; ALB/GLOB RATIO 1.6; ALBUMIN 4.6 g/dL (3.5-5.0); ALKALINE PHOSPHATASE 75 U/L (32-104); AMYLASE 75 U/L (20-200); BUN 15 mg/dL (8-22); CALCIUM 8.7 mg/dL (8.8-10.2); CHLORIDE 103 mmol/L (98-107); COSMO 282; CREATININE 0.6 mg/dL (0.5-0.9); ESTIMATED GFR > 60; GLUCOSE 125 mg/dL (70-104); GOT 16 U/L (10-30); GPT 15 U/L (10-36); LIPASE 24 U/L (13-60); POTASSIUM 3.4 mmol/L (3.5-5.1); SODIUM 140 mmol/L (136-145); TCO2 25 mmol/L (25-35); TOTAL BILIRUBIN 0.43 mg/dL (0.20-1.00); TOTAL PROTEIN 7.4 g/dL (6.3-8.3)
[2019-05-16 14:29] LABS: UR EPITHELIAL CELLS <10 /HPF (<10)
--- NOTE | 2019-05-16 16:35 | Diag Imaging Result Doc PS360 ---
FLAT/UPRIGHT ABD/1 VIEW CHEST - 05/16/2019 INDICATION: abd pain TECHNIQUE: COMPARISON: 03/08/2019 FINDINGS: The chest is clear. There is a nonobstructive bowel gas pattern. No free air or abnormal calcifications. IMPRESSION: Negative exam. Electronically signed by Pedro Luis Fish 05/16/2019 4:32 PM
--- NOTE | 2019-05-16 18:07 | Diag Imaging Result Doc PS360 ---
CT ABD/PELVIS W/IV CONT ONLY - 05/16/2019 INDICATION: abd pain COMPARISON: 03/08/2019 FINDINGS: The lung bases are clear and the heart size is normal. There are cholecystectomy clips. Otherwise all abdominal organs are normal. No bowel obstruction or inflammation. Urinary bladder, uterus, ovaries, and rectum are normal. Bones are intact. No free air or free fluid. IMPRESSION: Negative exam. This exam was performed using automated exposure control, adjustment of mA or kV according to patient size, and/or use of iterative reconstruction technique Electronically signed by Pedro Luis Fish 05/16/2019 6:05 PM
[2019-05-16] MEDS ORDERED: BENTYL IM ONE (18:29)
[2019-05-16] MEDS ORDERED: CATAPRES PO ONE (18:30)
--- NOTE | 2019-05-16 19:18 | PROVIDER DOCUMENTATION ---
This chart was entered by Aniya Winter Scribe, acting as scribe for Chance Causey MD. HPI-Abdominal Pain/GI Problem - General Chief Complaint: Abdominal Pain Stated Complaint: ABD PAIN,VOMITING Time Seen by Provider: 05/16/19 13:11 Source: patient, family Allergies/Adverse Reactions: Patient Allergies Allergy/AdvReac Type Severity Reaction Status Date / Time No Known Allergies Allergy Verified 05/16/19 13:21 Home Medications: Home Medication List Medication Instructions Recorded Confirmed Last Taken Type Duloxetine [Cymbalta] 60 mg PO DAILY 03/08/19 05/16/19 03/04/19 History - History of Present Illness-ABD Nature of Presenting Problems: 28 yowf presents to er w/family to ed w/cc abd pain, vomiting and constipation. pt family sts had gall bladder sx March 11, had been sick on and off since, and became worse this am. pt had endoscopy and CT done at [facility] around May 11 and was told to take stool softeners. pt sts has not had "hard" BM since sx but had a soft BM last night. pt denies fever, cp, sob, and urinary problems. no allergies. pt is in moderate distress in er, tearful, anxious and moaning. GB was out, did fairly well until 05/11, then began with worsening abd pain, N/V, decreased BM. Was seen, admitted @ . Was seen by GI, had EGD, no specific findings, was told to take stool softeners Abdominal Pain Onset Location: reports: LUQ, epigastric, periumbilical Pain Radiation: reports: no radiation Severity in ED: reports: moderate Onset/Duration: reports: this morning, other (on and off since march 11 choley sx) Timing: reports: still present Activities at Onset: reports: none Review of Systems - Adult - REVIEW OF SYSTEMS - ADULT Constitutional: reports: no symptoms reported. denies: fever, fatique, night sweats Eyes: reports: no symptoms reported Ears, Nose, Mouth & Throat: reports: no symptoms reported Cardiovascular: reports: no symptoms reported. denies: chest pain, edema, palpitations Respiratory: reports: no symptoms reported. denies: dyspnea on exertion, shortness of breath, wheezing Gastrointestinal: reports: see HPI, abdominal pain, constipation, vomiting. denies: hematemesis, diarrhea, rectal bleeding Genitourinary: reports: no symptoms reported. denies: dysuria, discharge, frequency Musculoskeletal: reports: no symptoms reported Integumentary: reports: no symptoms reported Neurological: reports: no symptoms reported Psychiatric: reports: no symptoms reported Endocrine: reports: no symptoms reported Hematologic/Lymphatic: reports: no symptoms reported Allergic/Immunologic: reports: no symptoms reported All Other Systems: Reviewed and Negative Past History - Adult - PAST MEDICAL HISTORY-ADULT Review of Records: reports: Old Records Reviewed, Nursing Assessment Review, Medications Reviewed, Social history reviewed & non-contributory. Major Childhood Illnesses: reports: denies history Cardiovascular: reports: denies history Respiratory: reports: denies history Gastrointestinal: reports: denies history Obstetrical/Gynecological: reports: denies history Genitourinary: reports: kidney disease (w/ ) Musculoskeletal: reports: denies history Neurological: reports: denies history Endocrine/Immune: reports: denies history Other Conditions: reports: denies history - PRIOR SURGERIES/PROCEDURES Surgical/Procedure History: reports: cholecystectomy, - PRIOR HOSPITALIZATIONS Prior Hospitalizations: reports: none - IMMUNIZATION STATUS Childhood Immunizations: See Nurse Assessment Flu Vaccine: See Nurse Assessment - FAMILY HISTORY Family History: reviewed, not pertinent - SOCIAL HISTORY Smoking: cigarettes, less than 1 pack/day Provider spent 3-5 mins advising pt. on dangers of tobacco.: Discussed manners to quit use, and f/u contacts for add'l counseling. Substance Use: alcohol Alcohol Use Frequency: occasionally Physical Exam-General - PHYSICAL EXAM-ADULT Initial Vital Signs Reviewed: Yes - CONSTITUTIONAL General Appearance: alert, moderate distress, anxious, other (tearful and moaning). negative: cachetic, lethargic, slow to respond - EYES Eyes: PERRL/EOMI, pink conjunctivae - HEAD, EARS, NOSE, MOUTH & THROAT HENMT: normocephalic/atraumatic, moist mucous membranes, normal ENT inspection - NECK Neck: non-tender, full range of motion, supple, normal inspection - RESPIRATORY Respiratory: chest non-tender, lungs clear, normal breath sounds - CARDIOVASCULAR Cardiovascular: normal peripheral pulses, regular rate, rhythm - GASTROINTESTINAL (ABDOMEN) Abdominal Exam: normal bowel sounds, soft, no organomegaly, no pulsatile mass, tenderness (midline and luq ten to palp). negative: non tender, abnormal bowel sounds, distended - LYMPHATIC Lymphatic: no adenopathy - MUSCULOSKELETAL Back Exam: normal inspection, no CVA tenderness, no vertebral tenderness Extremity: normal range of motion, non-tender, normal inspection Peripheral Pulses: radial (R): 2+, radial (L): 2+ - SKIN Integumentary: normal color, normal turgor, warm/dry - NEUROLOGIC Neurologic: grossly normal, no motor/sensory deficits, other (CN II-XII norm) - PSYCHIATRIC Psych/Mental Status: oriented x 3, anxious, tearful. negative: normal mood/affect, normal thought content, normal thought process Progress - PLAN OF CARE/RESULTS Progress/Plan/Lab Results: Vital Signs - 8 hr 05/16/19 13:06 Temperature 97.6 F Pulse Rate 81 Respiratory Rate 20 Blood Pressure 211/150 O2 Sat by Pulse Oximetry 99 was accessed in [employer], she filled 90 Xanax 1 mg on02/15, 03/18, and 04/20. No opiates Result Diagrams: 05/16/19 13:39 05/16/19 13:39 - REASSESSMENT Reassessment #1 Time Reassessed: 16:38 (still have not received records from , so will re CT) - XRAY 1 XRAY Study: Abdomen ( FLAT/UPRIGHT ABD/1 VIEW CHEST - 05/16/2019 INDICATION: abd pain TECHNIQUE: COMPARISON: 03/08/2019 FINDINGS: The chest is clear. There is a nonobstructive bowel gas pattern. No free air or abnormal calcificati ons. IMPRESSION: Negative exam. Electronically signed by Pedro Luis Fish 05/16/2019 4:32 PM) Impression: Normal, See EMR Report - CT/MRI 1 CT Study: Pelvis Impression: Normal - CONSULTS/PCP/HOSPITALIST Notification #1 *Consult/PCP/Hospitalist*: Edwin Time Discussed: 18:28 Reason/Comments: place on Bentyl, refer to GI #2 Consult: Kareem Time Discussed: 18:46 Consult Disposition: Will see in ED Departure - Departure Date of Disposition Decision: 05/16/19 Time of Disposition Decision: 19:17 DIAGNOSIS: Epigastric pain Disposition: ADMITTED INPATIENT 09 Certified Medical Emergency: Emergent Condition: Good Referrals and Follow-Ups: None,PCP [Primary Care Provider] - - Critical Care Note This patient required my direct & personal management of CC.: No Attestation - Physician/ LAXMI Attestation Patient care was provided by Advanced Practice Provider:: No The physician spent face to face time with patient:: Yes Advanced Practice Provider documentation review:: Supervising physician onsite and consulted in the evaluation and care of this patient. The physician did have a face to face encounter with the patient. This chart was documented by the indicated scribe, (Aniya Winter Scribe) and accurately reflects the services I performed and decisions made by me, Chance Causey MD, as attested by the provider's signature.
--- NOTE | 2019-05-16 20:52 | HISTORY AND PHYSICAL ---
CHIEF COMPLAINT: Abdominal pain. HISTORY OF PRESENT ILLNESS: This is a 28-year-old female who underwent laparoscopic cholecystectomy roughly [address] Lam[address] She also underwent EGD with findings of gastritis. She had been doing okay up until last week when she began experiencing intense crampy epigastric pain with nausea and vomiting. She went to [facility] and was admitted it sounds like for a couple of days last week. They did an EGD, but not a colonoscopy. She was told she had constipation and given stool softeners and then discharged. She was doing fine 2 days ago, but then started having severe pain again today. It is worse with eating. It feels similar to the pain prior to her cholecystectomy. She has also had several loose bowel movements daily throughout most of her postop course. No fever. PAST MEDICAL HISTORY: Anxiety, depression. PAST SURGICAL HISTORY: Laparoscopic cholecystectomy. Next C-sections. HOME MEDICATIONS: Xanax and THC occasionally. FAMILY HISTORY: Positive for Crohn disease. SOCIAL HISTORY: She smokes occasionally and takes THC recreationally. She has 2 children. REVIEW OF SYSTEMS: Ten systems reviewed and negative except as noted above. PHYSICAL EXAMINATION: VITAL SIGNS: Temperature 98.1 degrees, pulse 18, blood pressure 199/124, O2 saturation 100%. GENERAL: She is tearful, appears to be in pain, but able to converse. HEENT: Normocephalic, atraumatic. Extraocular muscles intact. Moist mucous membranes. NECK: Supple. No thyromegaly. CV: Regular rate and rhythm. RESPIRATORY: Bilateral equal breath sounds. No work of breathing. GI: Soft, nondistended. No organomegaly or mass. No hernias. Incisions well healed and intact. Mild tenderness diffusely. No rebound or guarding. EXTREMITIES: No clubbing, cyanosis, or edema. SKIN: Warm and dry. No rash. MUSCULOSKELETAL: Moves all extremities equal and well. LABORATORY: White cell count 15.9, hemoglobin 14, hematocrit 40, platelet count 252,000. Complete metabolic profile reviewed and unremarkable. Urinalysis positive for still some blood and trace leukocytes, nitrite is negative. Of note, the patient did start her period recently. IMAGING: CT of abdomen pelvis and abdominal x-rays were obtained today and are unremarkable in the official report. There are no bowel obstruction or inflammation. No free air or free fluid. On my own personal review, there is perhaps some wall thickening of the colon in a few areas. This may simply be a collapsed colon. ASSESSMENT/PLAN: A 28-year-old female with abdominal pain, intractable, of unclear etiology, perhaps gastritis or colitis. I will start her on Carafate, Protonix and Flagyl. We will give her some hydration and recheck her in the morning. Dr. Lam will be notified. cc: Milton Serna MD
[2019-05-16] MEDS: ZOFRAN IV PRN (21:30)
[2019-05-16] MEDS: MORPHINE IV PRN (21:30)
[2019-05-16] MEDS: FLAGYL 500 MG/NS 500 MG/100 ML IVPB IV SCH (21:31)
[2019-05-17] MEDS: ZOFRAN IV PRN ×4 (01:30→20:31)
[2019-05-17] MEDS: MORPHINE IV PRN ×4 (01:30→20:31)
[2019-05-17] MEDS: CARAFATE LIQUID PO SCH ×5 (02:00→20:33)
[2019-05-17] MEDS: FLAGYL 500 MG/NS 500 MG/100 ML IVPB IV SCH ×3 (06:31→17:03)
[2019-05-17 07:12] LABS: BASO# 0.01 X1000 (0.0-0.2); BASO% 0.1 % (0.0-0.8); EOS# 0.09 X1000 (0.0-0.7); EOS% 0.9 % (0.0-10.0); HEMOGLOBIN 13.1 g/dL (12.0-16.0); IMM GRAN# 0.05 X1000 (0.0-0.04); IMM GRAN% 0.5 % (0.0-0.5); LYMPH# 3.14 X1000 (1.2-3.4); LYMPH% 32.2 % (20.5-51.1); MCH 31.4 PG (27-31); MCHC 34.5 g/dL (33-37); MCV 91.1 FL (81-99); MONO# 0.72 X1000 (0.11-0.59); MONO% 7.4 % (1.7-9.3); MPV 11.1 FL (7.4-10.4); NEUT# 5.75 X1000 (1.4-6.5); NEUT% 58.9 % (42.2-75.2); PLT 241 X1000 (130-400); RBC 4.17 XMIL (4.2-5.4); RDW 12.5 % (11.5-14.5); WBC 9.76 X1000 (4.8-10.8)
--- NOTE | 2019-05-17 08:44 | Diag Imaging Result Doc PS360 ---
EXAM: ABDOMEN FLAT/UPRIGHT 05/17/2019 HISTORY: abdominal pain TECHNIQUE: Flat and upright abdomen COMMENT: There is some stool in the colon. There is no evidence of bowel obstruction gastric distention organomegaly or masses. There is apparently been cholecystectomy. IMPRESSION: Nonspecific abdomen. Electronically signed by David Fraser 05/17/2019 8:41 AM
[2019-05-17] MEDS: CYMBALTA PO SCH (09:15)
[2019-05-17] MEDS: BENTYL IM SCH (17:15)
--- NOTE | 2019-05-17 19:29 | GENERAL SURGERY PROGRESS NOTE ---
DATE: 05/17/2019 SUBJECTIVE: The patient is known to me from previous cholecystectomy with EGD. Over the last week, she has developed worsening abdominal discomfort. She was admitted to the [facility] ER with similar-type symptoms. She says similar to prior to her cholecystectomy. Esophagogastroduodenoscopy and colonoscopy was performed that apparently was unremarkable. She has had associated nausea. On review of her pathology from March, she had chronic cholecystitis and inactive gastritis, and was H. pylori negative on my EGD. She denies jaundice. No fever. In the interim, she did feel better after her cholecystectomy. She smokes occasionally, smokes marijuana occasionally. Of note, she has had some high blood pressures up to as high as 211/150, but it is better now, 115/66. OBJECTIVE: She has been afebrile. Pulse in the 50s. General: She is alert. Cardiovascular: Normal rate. Pulmonary: No increased work of breathing. Abdomen: Soft, nontender, nondistended. Integumentary: Warm and dry. No jaundice. Incisions from her previous surgery are well healed. LABORATORY AND DIAGNOSTIC DATA: White count is 9, hematocrit is 38. Creatinine is 0.6. LFTs are normal. Amylase and lipase are normal. Urinalysis showed some trace leukocytes and moderate blood. She had a CT scan of the abdomen and pelvis with IV contrast only, that was overall negative. It showed no complications related to her cholecystectomy. She had subsequent abdominal x-ray that was nonspecific. ASSESSMENT AND PLAN: This is a 28-year-old female with persistent epigastric abdominal discomfort, status post cholecystectomy in March. We will continue hydration. I have encouraged her go slow with her oral intake. We have her on Carafate, her Cymbalta. She is on morphine, Zofran, Protonix, as well as Flagyl for possible colitis. She has stool studies that are pending. Urinalysis shows no growth. She may ultimately require a pill endoscopy. I do not know what to make of her blood pressure. We will monitor this going forward. Looking back at her previous CT scan from March, there are no adrenal nodules noted. Continue to monitor. We have not ruled out the possibility of Crohn disease entirely, although I do not see any evidence of complications associated with this. cc: MD Milton Thorpe MD
[2019-05-18] MEDS: FLAGYL 500 MG/NS 500 MG/100 ML IVPB IV SCH ×4 (00:18→19:56)
[2019-05-18] MEDS: BENTYL IM SCH ×4 (00:22→18:30)
[2019-05-18] MEDS: ZOFRAN IV PRN ×3 (00:48→22:23)
[2019-05-18] MEDS: MORPHINE IV PRN ×3 (00:48→22:23)
[2019-05-18] MEDS: CARAFATE LIQUID PO SCH ×4 (02:55→21:37)
[2019-05-18] MEDS: PROTONIX PO SCH ×2 (03:22→07:40)
[2019-05-18] MEDS: CYMBALTA PO SCH (08:37)
--- NOTE | 2019-05-18 20:20 | GENERAL SURGERY PROGRESS NOTE ---
DATE: 05/18/2019 SUBJECTIVE: Feels better. She is sleeping the afternoon. No fevers. No tachycardia. OBJECTIVE: Blood pressure has been normal, 120s to 160s with no further hypertensive spikes. White count is 9. Hematocrit is 38. ASSESSMENT AND PLAN: This is a 28-year-old female with vague gastrointestinal complaints. She seems to be improving, possibility of gastroenteritis versus inflammatory process is unclear. Continue current medical management. Follow along. cc: MD Milton Thorpe MD
[2019-05-19] MEDS: BENTYL IM SCH ×4 (00:46→17:33)
[2019-05-19] MEDS: FLAGYL 500 MG/NS 500 MG/100 ML IVPB IV SCH ×5 (00:47→23:59)
[2019-05-19] MEDS: MORPHINE IV PRN ×5 (01:02→17:55)
[2019-05-19] MEDS: CARAFATE LIQUID PO SCH ×5 (01:03→20:30)
[2019-05-19] MEDS: ZOFRAN IV PRN ×3 (03:16→15:37)
[2019-05-19] MEDS: PROTONIX PO SCH (06:00)
[2019-05-19] MEDS ORDERED: ALBUTEROL NEB ONE (07:25)
[2019-05-19] MEDS: CYMBALTA PO SCH (09:00)
[2019-05-19] MEDS: LOVENOX SUBQ SCH (11:39)
--- NOTE | 2019-05-19 14:41 | GENERAL SURGERY PROGRESS NOTE ---
DATE: 05/19/2019 SUBJECTIVE: Doing okay. She says her pain is better. No fevers. No tachycardia. OBJECTIVE: Blood pressure 136/83, oxygen saturation 100%. In general, she is alert. She is sleeping most every time I enter the room. Abdomen is soft, nontender, nondistended. LABORATORY DATA: No new labs this morning. ASSESSMENT AND PLAN: A 28-year-old female with vague abdominal discomfort, which has been long- standing. Initially improved with cholecystectomy and improved now with Carafate, Zofran, and Protonix. I will advance her diet. If she tolerates this, we will let her go home and plan for pill endoscopy as an outpatient. cc: MD Milton Thorpe MD
[2019-05-20] MEDS: MORPHINE IV PRN
[2019-05-20] MEDS: CARAFATE LIQUID PO SCH ×3 (01:48→14:14)
[2019-05-20] MEDS: BENTYL IM SCH ×3 (05:51→12:06)
[2019-05-20] MEDS: PROTONIX PO SCH ×2 (05:51→06:31)
[2019-05-20] MEDS: FLAGYL 500 MG/NS 500 MG/100 ML IVPB IV SCH ×2 (05:51→12:07)
[2019-05-20] MEDS: CYMBALTA PO SCH (10:19)
[2019-05-20] MEDS: LOVENOX SUBQ SCH (12:07)
[2019-05-20 15:11] VITALS: BP 117/68
--- NOTE | 2019-05-21 20:07 | DISCHARGE SUMMARY ---
ADMISSION DATE: 05/16/2019 DISCHARGE DATE: 05/20/2019 SUBJECTIVE: Feels better. Tolerating diet. Pain is okay. She is not really ambulating much. No fevers. Blood pressure normal. She is awake. Systolics in the 90s when she is asleep. Oxygen saturation high 90s. General: She is alert. Cardiovascular, normal rate. Abdomen is soft, nontender, nondistended. No new labs yet this morning. ASSESSMENT AND PLAN: A 28-year-old female with functional abdominal pain. She has had extensive workup including cholecystectomy that has failed to resolve this. Suspect that this is either functional pain that has been improved with Bentyl, irritable bowel syndrome, or possible cyclic vomiting syndrome related to THC. Will allow her to go home with Bentyl and Zofran as needed. I have discussed smoking and marijuana cessation and we can follow her as an outpatient in a couple of weeks. cc: MD Milton Thorpe MD
== END 2019-05-20 15:57 | disposition home or self-care (01) | DRG 392 ==
LOC: ED 13:04 → 4N 13:04 → OBSVTOIN 20:09 → 4N 20:11
PROVIDERS: ADMIT Surgery; ATTEND Surgery
CPT/HCPCS: 74019; 74020; 74022; 74177; 80053; 81001; 82150; 83690; 85025; 87045; 87046; 87088; 87205; 87324; 89055; A9270; J0500; J1170; J1650; J2270; J2405; J7030; Q9967; S0030

== ENCOUNTER 2019-12-04 11:25 | Inpatient (IN) ==
[2019-12-04] MEDS ORDERED: BENTYL IM ONE (12:05)
[2019-12-04] MEDS ORDERED: NS 1,000 ML IV ONE (12:05)
[2019-12-04] MEDS ORDERED: ATIVAN IV ONE (12:05)
[2019-12-04] MEDS ORDERED: REGLAN IV ONE (12:05)
[2019-12-04] MEDS ORDERED: BENADRYL IV ONE (12:05)
[2019-12-04] MEDS ORDERED: TORADOL IV ONE (12:05)
[2019-12-04] MEDS: NS 1,000 ML IV ONE (12:52)
--- NOTE | 2019-12-04 12:52 | PROVIDER DOCUMENTATION ---
This chart was entered by Pal Forrest Scribe, acting as scribe for Uriel Mcghee MD. HPI-Abdominal Pain/GI Problem - General Source: patient - History of Present Illness-ABD Nature of Presenting Problems: 29 yof presents to the ed w/ c/o N/V/D. pt states "been in and out of hospital since March when gallbladder was removed." pt states V- all morning. pt states D- green to appearance. pt denies any blood in V/D. pt states drinking makes abd pains worse and hot shower improves pains. pt states "no marijuana use in past month in half" Abdominal Pain Onset Location: reports: generalized abdomen Pain Radiation: reports: no radiation Quality of Pain: reports: cramping Severity in ED: reports: mild Onset/Duration: reports: this morning Timing: reports: still present Activities at Onset: reports: none Exposure to sick contacts?: No Modifying Factors: improves with: nothing Associated Symptoms: reports: diarrhea (past hr (green)), nausea, vomiting. denies: constipation, cough, fever/chills, sinus congestion/drainage, shortness of breath Last BM: other (past hr) Dark Stools Present?: reports: none noticed Rectal Bleeding: reports: none Rectal Pain: reports: none Emesis Description: reports: none Bruising or Bleeding Gums?: No Similar Symptoms Previously?: No Recently seen or treated by another doctor?: No <Uriel Mcghee - Last Filed: 12/04/19 16:02> <Jaylin Crocker - Last Filed: 12/04/19 16:13> - General Chief Complaint: N/V/D Stated Complaint: VOMITING/SEVERE ABD PAIN/DIARRHEA Time Seen by Provider: 12/04/19 11:52 Allergies/Adverse Reactions: Patient Allergies Allergy/AdvReac Type Severity Reaction Status Date / Time No Known Allergies Allergy Verified 12/04/19 14:39 Home Medications: Home Medication List Medication Instructions Recorded Confirmed Last Taken Type Dicyclomine [Bentyl] 20 mg PO Q6H #120 cap 05/20/19 12/04/19 1 Month Ago Rx ~11/03/19 Alprazolam 1 mg PO TID 06/27/19 12/04/19 12/03/19 History Hydroxyzine Pamoate [Vistaril] 25 mg PO TID 06/27/19 12/04/19 12/03/19 History Ondansetron [Zofran] 4 mg PO Q4H PRN PRN #30 tab 10/17/19 12/04/19 1 Month Ago Rx ~11/03/19 Quetiapine [Seroquel] 1 tab PO DAILY 12/04/19 12/04/19 12/03/19 History Review of Systems - Adult - REVIEW OF SYSTEMS - ADULT Constitutional: denies: chills, fever Eyes: reports: no symptoms reported Ears, Nose, Mouth & Throat: denies: sinus problem, throat pain Cardiovascular: reports: no symptoms reported Respiratory: denies: cough, shortness of breath Gastrointestinal: reports: see HPI, abdominal pain, diarrhea, nausea, vomiting. denies: constipation, rectal bleeding Genitourinary: reports: no symptoms reported Musculoskeletal: reports: no symptoms reported Integumentary: reports: no symptoms reported Neurological: reports: no symptoms reported Psychiatric: reports: no symptoms reported Endocrine: reports: no symptoms reported Hematologic/Lymphatic: reports: no symptoms reported Allergic/Immunologic: reports: no symptoms reported All Other Systems: Reviewed and Negative <Uriel Mcghee - Last Filed: 12/04/19 16:02> Past History - Adult - PAST MEDICAL HISTORY-ADULT Review of Records: reports: Old Records Reviewed, Nursing Assessment Review, Medications Reviewed, Social history reviewed & non-contributory. Major Childhood Illnesses: reports: denies history Cardiovascular: reports: denies history Respiratory: reports: denies history Gastrointestinal: reports: denies history Obstetrical/Gynecological: reports: denies history Genitourinary: reports: kidney disease Musculoskeletal: reports: denies history Neurological: reports: denies history Psychiatric: reports: denies history Endocrine/Immune: reports: denies history Other Conditions: reports: denies history - PRIOR SURGERIES/PROCEDURES Surgical/Procedure History: reports: cholecystectomy, - PRIOR HOSPITALIZATIONS Prior Hospitalizations: reports: none - IMMUNIZATION STATUS Childhood Immunizations: See Nurse Assessment Flu Vaccine: See Nurse Assessment - FAMILY HISTORY Family History: reviewed, not pertinent - SOCIAL HISTORY Smoking: cigarettes, less than 1 pack/day Provider spent 3-5 mins advising pt. on dangers of tobacco.: Discussed manners to quit use, and f/u contacts for add'l counseling. Substance Use: alcohol Alcohol Use Frequency: occasionally <Uriel Mcghee - Last Filed: 12/04/19 16:02> Physical Exam-General - PHYSICAL EXAM-ADULT Initial Vital Signs Reviewed: Yes - CONSTITUTIONAL General Appearance: appears well, alert, mild distress (appers to be uncomfortable to apperance w/ mild distress) - RESPIRATORY Respiratory: chest non-tender, lungs clear, normal breath sounds - CHEST (BREASTS) Chest/Breast: deferred - GASTROINTESTINAL (ABDOMEN) Abdominal Exam: normal bowel sounds, soft, tenderness (generalized) - GENITOURINARY Female Genitalia/Pelvic Exam: deferred Rectal Exam: deferred Hemoccult Exam: deferred - SKIN Integumentary: normal color - PSYCHIATRIC Psych/Mental Status: normal mood/affect, normal thought content, normal thought process, oriented x 3 <Uriel Mcghee - Last Filed: 12/04/19 16:02> Progress - PLAN OF CARE/RESULTS Progress/Plan/Lab Results: Vital Signs - 8 hr 12/04/19 11:43 Temperature 97.1 F L Pulse Rate 61 Respiratory Rate 20 Blood Pressure 171/100 O2 Sat by Pulse Oximetry 99 Result Diagrams: 12/04/19 12:39 12/04/19 12:39 - REASSESSMENT Reassessment #1 Time Reassessed: 12:52 Status: improving (Given IVF, toradol, dicyclomine, reglan, benadryl and ativan) - EKG 1 Time of EKG reading by physician:: 15:14 EKG Read and Signed by:: Jaylin Crocker EKG Interpretation (*Must complete 3 of following elements*): Abnormal Rate: 78 Rhythm: sinus rhythm w/ marked sinus arrhythmia [place]: normal QRS: normal AL Interval: normal ST Wave: normal Comments: incomplete RT bundle branch block/Prolonged QT - XRAY 1 XRAY Study: Chest Impression: See EMR Report ( EXAM: CHEST-1 VIEW INDICATION: SEPSIS PROTOCOL TECHNIQUE: One view COMPARISON: 05/16/2019 FINDINGS: The lungs are grossly clear. There is no discrete pleural fluid collection or pneumothorax. The cardiomediastinal silhouette and central vasculature are grossly unremarkable. IMPRESSION: No evidence of acute pathology by plain radiograph. Electronically signed by Tyshawn Winter 12/04/2019 2:40 PM 12/04/19 1440 Interpreting Physician: Tyshawn Winter MD Dictated Date/Time: 12/04/19 1440 cc: Jaylin Crocker MD; Zaki Sandhu) - CT/MRI 1 CT Study: Abdomen, Pelvis Impression: See EMR Report ( EXAM: CT ABDOMEN/PELVIS W/O CONTRAST INDICATION: abd pain TECHNIQUE: This exam was performed using automated exposure control, adjustment of mA or kV according to patient size, and/or use of iterative reconstruction technique. COMPARISON: 10/17/2019 FINDINGS: There has been a prior cholecystectomy. The liver, spleen, pancreas, adrenal glands, kidneys, and urinary bladder are unremarkable. The reproductive tract is grossly unremarkable as imaged. The appendix is normal. There are a couple of nonspecific mild to moderately distended loops of small bowel in the upper abdomen with a few air-fluid levels. This probably represents ileus, possibly related to enteritis. No definite bowel wall thickening is identified, however. There is incidental fatty infiltration of the colonic wall, stable. There is nothing that would necessarily indicate obstruction. The remainder of the GI tract is grossly unremarkable. No focal inflammatory changes, free abdominal gas, or free fluid is appreciated. There is no evidence of acute osseous abnormality. IMPRESSION: A few prominent loops of small bowel in the upper abdomen that are nonspecific. Consider ileus, perhaps related to enteritis. Electronically signed by Tyshawn Winter 12/04/2019 2:45 PM 12/04/19 1445 Interpreting Physician: Tyshawn Winter MD Dictated Date/Time: 12/04/19 1441 cc: Jaylin Crocker MD; Zaki Sandhu) - CONSULTS/PCP/HOSPITALIST Notification #1 *Consult/PCP/Hospitalist*: consult w/ hospitalists Time Discussed: 15:57 Consult Disposition: Admit #2 Consult: consult w/ dr. Hutchins Time Discussed: 16:02 - CHANGE OF SHIFT REPORT (ED Provider) 1 Report Given and Care Transferred to:: Lizzette Time of Transfer: 13:00 Items Pending: Labs, Pain Control <Uriel Mcghee - Last Filed: 12/04/19 16:02> - PLAN OF CARE/RESULTS Progress/Plan/Lab Results: Vital Signs - 8 hr 12/04/19 11:43 12/04/19 13:01 12/04/19 14:01 Temperature 97.1 F L Pulse Rate 61 67 82 Respiratory Rate 20 27 H 21 Blood Pressure 171/100 165/103 165/141 O2 Sat by Pulse Oximetry 99 100 12/04/19 14:44 Temperature 98.4 F Pulse Rate 79 Respiratory Rate 13 Blood Pressure 153/101 O2 Sat by Pulse Oximetry 98 Bedside Urine ED: Urine Bedside Start: 12/04/19 12:04 Freq: NOW Status: Active Protocol: Activity Type Activity Date Activity User E-Sign Co-Sign Detail Recorded Client Recorded Date Recorded By Document 12/04/19 12:45 [id number] 12/04/19 12:46 [id number] 12/04/19 12:45 Point of Care [Bedside Point of Care] -Lot # [id number] - Results Negative -Control Line Visible? Yes Laboratory Results - last 24 hr 12/04/19 12/04/19 12/04/19 12:15 12:15 12:39 WBC RBC Hgb Hct MCV MCH MCHC RDW Std Deviation Plt Count MPV Immature Gran % (Auto) Neut % (Auto) Lymph % (Auto) [place] % (Auto) Eos % (Auto) Baso % (Auto) Immature Gran # (Auto) Neut # (Auto) Lymph # (Auto) [place] # (Auto) Eos # (Auto) Baso # (Auto) PT INR PTT (Actin FS) Sodium 143 Potassium 4.0 Chloride 106 Carbon Dioxide 17 L Anion Gap 20 BUN 14 Creatinine 0.8 Estimated GFR/1.73 m2 > 60 BUN/Creatinine Ratio 18 Glucose 111 H Calculated Osmolality 286 Calcium 9.7 Total Bilirubin 0.41 AST 29 ALT 17 Alkaline Phosphatase 80 Creatine Kinase Creatine Kinase Index CK-MB (CK-2) Troponin T High Sens Total Protein 8.2 Albumin 4.7 Globulin 3.5 Albumin/Globulin Ratio 1.3 Amylase 83 Lipase 16 Plasma Lactate Urine Source CLEAN CATCH Urine Color YELLOW Urine Turbidity HAZY Urine pH 7.5 Ur Specific [place] 1.029 Urine Protein 70 A Ur Glucose (Stick) NEGATIVE Ur Ketones (Stick) 80 A Urine Blood MODERATE A Urine Nitrite NEGATIVE Urine Bilirubin NEGATIVE Urobilinogen Dipstick NORMAL Urine Leukocytes NEGATIVE Urine WBC (Auto) <10 Urine RBC (Auto) <10 U Epithel Cells (Auto) <10 Urine Bacteria (Auto) 1+ Urine Crystals NONE SEEN Small Round Cells Not Reportable Urine Casts Not Reportable Urine Yeast-like Cells Not Reportable Urine Opiates Screen NONE DETECTED Ur Oxycodone Screen NONE DETECTED Ur Methadone, Qual NONE DETECTED Ur Barbiturates Screen NONE DETECTED Ur Phencyclidine Scrn NONE DETECTED Ur Amphetamines Screen NONE DETECTED U Benzodiazepines Scrn NONE DETECTED Urine Cocaine Screen NONE DETECTED U Cannabinoids Screen PRESUMPTIVE POSITIVE A 12/04/19 12/04/19 12/04/19 12:39 12:39 12:39 WBC 13.68 H RBC 4.55 Hgb 14.3 Hct 42.6 MCV 93.6 MCH 31.4 H MCHC 33.6 RDW Std Deviation 13.0 Plt Count 283 MPV 11.8 H Immature Gran % (Auto) 0.3 Neut % (Auto) 83.3 H Lymph % (Auto) 13.7 L [place] % (Auto) 2.5 Eos % (Auto) 0.1 Baso % (Auto) 0.1 Immature Gran # (Auto) 0.04 Neut # (Auto) 11.40 H Lymph # (Auto) 1.87 [place] # (Auto) 0.34 Eos # (Auto) 0.01 Baso # (Auto) 0.02 PT 13.1 INR 0.98 PTT (Actin FS) 25.7 Sodium Potassium Chloride Carbon Dioxide Anion Gap BUN Creatinine Estimated GFR/1.73 m2 BUN/Creatinine Ratio Glucose Calculated Osmolality Calcium Total Bilirubin AST ALT Alkaline Phosphatase Creatine Kinase 230 H Creatine Kinase Index 1.1 CK-MB (CK-2) 2.53 Troponin T High Sens Total Protein Albumin Globulin Albumin/Globulin Ratio Amylase Lipase Plasma Lactate Urine Source Urine Color Urine Turbidity Urine pH Ur Specific [place] Urine Protein Ur Glucose (Stick) Ur Ketones (Stick) Urine Blood Urine Nitrite Urine Bilirubin Urobilinogen Dipstick Urine Leukocytes Urine WBC (Auto) Urine RBC (Auto) U Epithel Cells (Auto) Urine Bacteria (Auto) Urine Crystals Small Round Cells Urine Casts Urine Yeast-like Cells Urine Opiates Screen Ur Oxycodone Screen Ur Methadone, Qual Ur Barbiturates Screen Ur Phencyclidine Scrn Ur Amphetamines Screen U Benzodiazepines Scrn Urine Cocaine Screen U Cannabinoids Screen 12/04/19 12/04/19 12:39 12:39 WBC RBC Hgb Hct MCV MCH MCHC RDW Std Deviation Plt Count MPV Immature Gran % (Auto) Neut % (Auto) Lymph % (Auto) [place] % (Auto) Eos % (Auto) Baso % (Auto) Immature Gran # (Auto) Neut # (Auto) Lymph # (Auto) [place] # (Auto) Eos # (Auto) Baso # (Auto) PT INR PTT (Actin FS) Sodium Potassium Chloride Carbon Dioxide Anion Gap BUN Creatinine Estimated GFR/1.73 m2 BUN/Creatinine Ratio Glucose Calculated Osmolality Calcium Total Bilirubin AST ALT Alkaline Phosphatase Creatine Kinase Creatine Kinase Index CK-MB (CK-2) Troponin T High Sens < 6 Total Protein Albumin Globulin Albumin/Globulin Ratio Amylase Lipase Plasma Lactate 2.5 H Urine Source Urine Color Urine Turbidity Urine pH Ur Specific [place] Urine Protein Ur Glucose (Stick) Ur Ketones (Stick) Urine Blood Urine Nitrite Urine Bilirubin Urobilinogen Dipstick Urine Leukocytes Urine WBC (Auto) Urine RBC (Auto) U Epithel Cells (Auto) Urine Bacteria (Auto) Urine Crystals Small Round Cells Urine Casts Urine Yeast-like Cells Urine Opiates Screen Ur Oxycodone Screen Ur Methadone, Qual Ur Barbiturates Screen Ur Phencyclidine Scrn Ur Amphetamines Screen U Benzodiazepines Scrn Urine Cocaine Screen U Cannabinoids Screen Orders Category Date Time Status Cardiac Monitoring DIRECTED Care 12/04/19 14:21 Active ED: Urine Bedside NOW Care 12/04/19 12:04 Active Notify MD of + Sepsis Screen NOW Care 12/04/19 14:21 Active Notify Physician As Ordered Care 12/04/19 14:21 Active Saline Loc DIRECTED Care 12/04/19 12:04 Active NPO Diet 12/04/19 12:04 Active CHEST-1 VIEW [RAD] Stat Exams 12/04/19 14:[address] ABDOMEN/PELVIS W/O CONTRAST [CT] Stat Exams 12/04/19 13:51 Completed AMYLASE [CHEM] Stat Lab 12/04/19 12:39 Completed BLOOD CULTURE [BLDCUL] Stat Lab 12/04/19 12:53 Received CBC WITH ELECTRONIC DIFF [HEME] Stat Lab 12/04/19 12:39 Completed CK PROFILE [SP CHEM] Stat Lab 12/04/19 12:39 Completed COMPREHENSIVE METABOLIC PANEL [CHEM] Stat Lab 12/04/19 12:39 Completed LACTATE, PLASMA [CHEM] Lab 12/04/19 17:30 Uncollected LACTATE, PLASMA [CHEM] Lab 12/04/19 20:30 Uncollected LACTATE, PLASMA [CHEM] Q3H Lab 02/02/20 12:39 Completed LIPASE [CHEM] Stat Lab 12/04/19 12:39 Completed PROTIME WITH INR [COAG] Stat Lab 12/04/19 12:39 Completed PTT [COAG] Stat Lab 12/04/19 12:39 Completed TROPONIN T HIGH SENSITIVITY Stat Lab 12/04/19 12:39 Completed URINALYSIS W/POSS RFLX CULT [URINALYSIS] Stat Lab 12/04/19 12:15 Completed URINE DRUG SCREEN Stat Lab 12/04/19 12:15 Completed URINE MANUAL MICROSCOPIC [URINALYSIS] Stat Lab 12/04/19 12:15 Completed 0.9% Sodium Chloride Inj [Ns] 1,000 ml Med 12/04/19 12:05 Discontinued IV 999 mls/hr 0.9% Sodium Chloride Inj [Ns] 1,000 ml Med 12/04/19 12:05 Discontinued IV 999 mls/hr CefTRIAXONE [Rocephin] 1 gm Med 12/04/19 15:29 Active 0.9% Sodium Chloride Inj [Ns] 50 ml IV NOW Dicyclomine [Bentyl] Med 12/04/19 12:05 Discontinued 20 mg IM NOW ONE Diphenhydramine [Benadryl] Med 12/04/19 12:05 Discontinued 25 mg IV NOW ONE Ketorolac [Toradol] Med 12/04/19 12:05 Discontinued 30 mg IV NOW ONE Lorazepam [Ativan] Med 12/04/19 12:05 Discontinued 1 mg IV NOW ONE Metoclopramide [Reglan] Med 12/04/19 12:05 Discontinued 10 mg IV NOW ONE Metronidazole 500 mg/Ns [Flagyl 500 mg/Ns] Med 12/04/19 15:06 Active 500 mg in 100 ml IV NOW Pantoprazole [Protonix] Med 12/04/19 13:51 Discontinued 40 mg IV NOW ONE Sodium Chloride 0.9% Med 12/04/19 13:51 Discontinued 10 ml INJ NOW ONE Oxygen Device Stat Oth 12/04/19 14:21 Active Result Diagrams: 12/04/19 12:39 12/04/19 12:39 - REASSESSMENT Reassessment #2 Status: unchanged (pt with chest/abd pain n/v ileus on immigind, abn heart rhythm prolonged AL interval and mobitz type 2 , will admit hospitalist septic protocal cardiac eval) Reassessment #3 Status: unchanged (patient with gastroenteritis, NVD abd chest pain, arrythmia noted ? fco 2 , dr hutchins cardilogy has reveiwed EKG feesl its vagal tone related sinosoidal block form abd pain, no consult needed unless symptomatic after GI issue has resolved. spoke to hospitalist napoleon admit) <LizzetteAnujmarybeth Zarate - Last Filed: 12/04/19 16:13> Departure - Departure Date of Disposition Decision: 12/04/19 Certified Medical Emergency: Emergent - Critical Care Note This patient required my direct & personal management of CC.: No <Uriel Mcghee - Last Filed: 12/04/19 16:02> - Departure Time of Disposition Decision: 15:52 Certified Medical Emergency: Emergent <LizzetteAnujmarybeth Zarate - Last Filed: 12/04/19 16:13> - Departure DIAGNOSIS: Nausea & vomiting, Ileus, Arrhythmia, Chest pain, Sepsis, Gastroenteritis Disposition: [facility] 02 Condition: Stable Referrals and Follow-Ups: Zaki Sandhu [Primary Care Provider] - Discharge Education: Steps to Quit Smoking Attestation - Physician/ LAXMI Attestation Patient care was provided by Advanced Practice Provider:: No The physician spent face to face time with patient:: Yes Advanced Practice Provider documentation review:: Supervising physician onsite and consulted in the evaluation and care of this patient. The physician did have a face to face encounter with the patient. <Uriel Mcghee - Last Filed: 12/04/19 16:02> This chart was documented by the indicated scribe, (Pal Forrest, Darryl) and accurately reflects the services I performed and decisions made by Taz watson Kent A., MD, as attested by the provider's signature.
[2019-12-04] MEDS ORDERED: SODIUM CHLORIDE 0.9% INJ ONE (13:51)
[2019-12-04] MEDS ORDERED: PROTONIX IV ONE (13:51)
[2019-12-04 13:52] LABS: URINE SOURCE CLEAN CATCH
[2019-12-04 13:53] LABS: BASO# 0.02 X1000 (0.0-0.2); BASO% 0.1 % (0.0-0.8); EOS# 0.01 X1000 (0.0-0.7); EOS% 0.1 % (0.0-10.0); HEMATOCRIT 42.6 % (37.0-47.0); HEMOGLOBIN 14.3 g/dL (12.0-16.0); IMM GRAN# 0.04 X1000 (0.0-0.04); IMM GRAN% 0.3 % (0.0-0.5); LYMPH# 1.87 X1000 (1.2-3.4); LYMPH% 13.7 % (20.5-51.1); MCH 31.4 PG (27-31); MCHC 33.6 g/dL (33-37); MCV 93.6 FL (81-99); MONO# 0.34 X1000 (0.11-0.59); MONO% 2.5 % (1.7-9.3); MPV 11.8 FL (7.4-10.4); NEUT% 83.3 % (42.2-75.2); PLT 283 X1000 (130-400); RBC 4.55 XMIL (4.2-5.4); WBC 13.68 X1000 (4.8-10.8)
[2019-12-04 13:58] LABS: BILIRUBIN URINE NEGATIVE (NEGATIVE); BLOOD URINE MODERATE (NEGATIVE); COLOR YELLOW; GLUCOSE URINE NEGATIVE (NEGATIVE); KETONE URINE 80 mg/dL (NEGATIVE); LEUKOCYTES URINE NEGATIVE (NEGATIVE); NITRITE URINE NEGATIVE (NEGATIVE); PH URINE 7.5; PROTEIN URINE 70 mg/dL (NEGATIVE); SP GRAVITY URINE 1.029; TURBIDITY URINE HAZY (CLEAR); UR EPITHELIAL CELLS <10 /HPF (<10); URINE BACTERIA 1+ /HPF; URINE RBC <10 /HPF (<10); URINE WBC <10 /HPF (<10); UROBILINOGEN URINE NORMAL (NORMAL)
[2019-12-04 14:11] LABS: URINE CRYSTALS NONE SEEN
--- NOTE | 2019-12-04 14:43 | Diag Imaging Result Doc PS360 ---
EXAM: CHEST-1 VIEW INDICATION: SEPSIS PROTOCOL TECHNIQUE: One view COMPARISON: 05/16/2019 FINDINGS: The lungs are grossly clear. There is no discrete pleural fluid collection or pneumothorax. The cardiomediastinal silhouette and central vasculature are grossly unremarkable. IMPRESSION: No evidence of acute pathology by plain radiograph. Electronically signed by Tyshawn Winter 12/04/2019 2:40 PM
--- NOTE | 2019-12-04 14:47 | Diag Imaging Result Doc PS360 ---
EXAM: CT ABDOMEN/PELVIS W/O CONTRAST INDICATION: abd pain TECHNIQUE: This exam was performed using automated exposure control, adjustment of mA or kV according to patient size, and/or use of iterative reconstruction technique. COMPARISON: 10/17/2019 FINDINGS: There has been a prior cholecystectomy. The liver, spleen, pancreas, adrenal glands, kidneys, and urinary bladder are unremarkable. The reproductive tract is grossly unremarkable as imaged. The appendix is normal. There are a couple of nonspecific mild to moderately distended loops of small bowel in the upper abdomen with a few air-fluid levels. This probably represents ileus, possibly related to enteritis. No definite bowel wall thickening is identified, however. There is incidental fatty infiltration of the colonic wall, stable. There is nothing that would necessarily indicate obstruction. The remainder of the GI tract is grossly unremarkable. No focal inflammatory changes, free abdominal gas, or free fluid is appreciated. There is no evidence of acute osseous abnormality. IMPRESSION: A few prominent loops of small bowel in the upper abdomen that are nonspecific. Consider ileus, perhaps related to enteritis. Electronically signed by Tyshawn Winter 12/04/2019 2:45 PM
[2019-12-04 14:48] LABS: UR AMPHETAMINES QUAL NONE DETECTED (NONE DETECT); UR BARBITUATES QUAL NONE DETECTED (NONE DETECT); UR BENZODIAZEPIN QUAL NONE DETECTED (NONE DETECT); UR CANNABINOIDS QUAL PRESUMPTIVE POSITIVE (NONE DETECT); UR COCAINE QUAL NONE DETECTED (NONE DETECT); UR METHADONE QUAL NONE DETECTED (NONE DETECT); UR OPIATES QUAL NONE DETECTED (NONE DETECT); UR OXYCODONE QUAL NONE DETECTED (NONE DETECT); UR PCP QUAL NONE DETECTED (NONE DETECT)
[2019-12-04 14:49] LABS: AGAP 20; ALB/GLOB RATIO 1.3; ALBUMIN 4.7 g/dL (3.5-5.0); ALKALINE PHOSPHATASE 80 U/L (32-104); AMYLASE 83 U/L (20-200); BUN 14 mg/dL (8-22); CALCIUM 9.7 mg/dL (8.8-10.2); CHLORIDE 106 mmol/L (98-107); COSMO 286; CREATININE 0.8 mg/dL (0.5-0.9); ESTIMATED GFR > 60; GLUCOSE 111 mg/dL (70-104); GOT 29 U/L (10-30); GPT 17 U/L (10-36); LIPASE 16 U/L (13-60); SODIUM 143 mmol/L (136-145); TCO2 17 mmol/L (25-35); TOTAL BILIRUBIN 0.41 mg/dL (0.20-1.00); TOTAL PROTEIN 8.2 g/dL (6.3-8.3)
[2019-12-04] MEDS ORDERED: FLAGYL 500 MG/NS 500 MG/100 ML IVPB IV ONE (15:06)
[2019-12-04 15:21] LABS: INR 0.98; PROTIME 13.1 Seconds (11.0-16.0); PTT 25.7 Seconds (22.3-41.8)
[2019-12-04] MEDS ORDERED: ROCEPHIN 1 GM in NS 50 ML IV ONE (15:29)
[2019-12-04 15:33] LABS: CK INDEX 1.1 (0.0-2.5); CK-MB 2.53 ng/mL (0.0-5.0)
[2019-12-04] MEDS ORDERED: SODIUM CHLORIDE IV ONE (15:56)
[2019-12-04] MEDS ORDERED: MORPHINE IV ONE ×2 (16:08→23:35)
[2019-12-04] MEDS ORDERED: ZOFRAN IV ONE (16:08)
--- NOTE | 2019-12-04 17:17 | HISTORY AND PHYSICAL ---
HISTORY OF PRESENT ILLNESS: She is a 29-year-old white female. Does not have a primary care physician. She reports that she had her gallbladder taken out in March of 2019 and that she has had trouble off and on with abdominal bloating and ileus. She has been admitted here. She was admitted here in May 2019 with abdominal pain and bloating. She has been admitted at [facility]. She underwent an EGD and had findings of gastritis. She admits she was still using marijuana, but she claims she quit a month and half ago to see if this would help. She went to [facility] and was admitted, sounds like a couple days the week before early part may. Did an EGD, but not a colonoscopy, was told she had constipation. She was given stool softeners. She had done fine two days before admission and then started having pain again. Seems similar to the pain she claims she had before her cholecystectomy. PAST HISTORY: Only other significant history, she has had 2 sections back in early . History of anxiety and depression. FAMILY HISTORY: Positive for Crohn's disease, I believe, in her mother. Also, mother had diverticulosis. SOCIAL HISTORY: Occasionally with recreational THC. She has two children. REVIEW OF SYSTEMS: Gastrointestinal: She reports that she has had trouble off and on with her tummy bloating. More nausea and discomfort this morning. She has had bowel movements, although they have been loose, by her report. Constitutional: She does not note any fever or chills. Respiratory: No increased work of breathing or dyspnea. Cardiovascular: No chest pain or tachy palpitation. : No gross hematuria or dysuria. Musculoskeletal/Neurologic: No focal complaints. Endocrinologic/Hematologic: No significant history. PHYSICAL EXAMINATION: VITAL SIGNS: Temperature 98.4 degrees, pulse 79, respirations 13, blood pressure 153/101. Weight 180 pounds. Height 5 ft, 6 inches. HEENT: Pupils are equal and round. LUNGS: Clear in all lung moore. CARDIOVASCULAR: Regular rate without murmur or S3. ABDOMEN: Mildly distended, diffusely uncomfortable. No rebound tenderness appreciated. SKIN: Warm and dry. LABORATORY DATA: White count 13,680, hematocrit 42, platelet count 283,000. Sodium 143, potassium 4.0, chloride 106, BUN 14, creatinine 0.8, AST 29, ALT is 17, alkaline phosphatase is 80, amylase 83, lipase 16. Urine drug screen presumptive positive for cannabinoids. Urinalysis unremarkable. IMAGING: Abdominal and pelvic CT with a few prominent loops of small bowel in the upper abdomen. They are nonspecific. Consider ileus, perhaps related to enteritis. Chest x-ray with no evidence of acute pathology on the plain film. She had an EKG and there was a question whether there was a second degree block, which I do not appreciate on EKG. She has an incomplete right bundle branch block, otherwise no suspicious ST segment changes. ASSESSMENT AND PLAN: 1. Ileus, nausea, still using marijuana. I am going to give her some fluids and antiemetics. I am going to try and avoid opioid pain medicine. She was asking for tramadol and see if we get some resolution. I do not see any evidence of a surgical abdomen. I will ask Gastroenterology to look on as well. She does have a family history of Crohn's disease. We will check her thyroid, B12, and folate. Check a C-reactive protein to see if there is any evidence of inflammation. Keep her on clear liquids for now and advance diet as we can. 2. Anxiety and depression. She is on Xanax 1 mg three times a day. She takes Bentyl for abdominal cramping. She is on Vistaril 25 mg three times a day and takes Seroquel one tablet daily. She has Zofran at home which she has been using for nausea. I have counseled her on stopping marijuana and this may be nausea related to cannabinoid use. cc: Geraldo Chawla MD
[2019-12-04] MEDS: NS + KCL 40 MEQ 1,000 ML IV SCH (17:39)
[2019-12-04] MEDS: BENTYL PO SCH ×2 (18:14→23:54)
[2019-12-04] MEDS: XANAX PO SCH (18:15)
[2019-12-04] MEDS: ATARAX PO SCH (18:15)
[2019-12-04] MEDS: TORADOL IV PRN (19:01)
[2019-12-04] MEDS: ZOFRAN IV PRN (19:51)
[2019-12-04] MEDS: PRILOSEC PO SCH (21:16)
[2019-12-04] MEDS: TYLENOL PO PRN (21:23)
[2019-12-04] MEDS ORDERED: BLISTEX MEDICATED BERRY LIP BALM TOP PRN (21:33)
[2019-12-04] MEDS: SEROQUEL PO SCH (22:16)
[2019-12-04] MEDS: PHENERGAN IV PRN (23:54)
[2019-12-04] MEDS: SODIUM CHLORIDE 0.9% INJ PRN (23:54)
[2019-12-05] MEDS: NS + KCL 40 MEQ 1,000 ML IV SCH ×3 (02:22→12:59)
[2019-12-05] MEDS: ZOFRAN IV PRN ×2 (02:28→11:40)
[2019-12-05] MEDS: PRILOSEC PO SCH ×2 (06:28→21:09)
[2019-12-05] MEDS: BENTYL PO SCH (06:28)
[2019-12-05] MEDS: TORADOL IV PRN ×3 (06:40→21:10)
[2019-12-05] MEDS: PHENERGAN IV PRN (06:40)
[2019-12-05] MEDS: SODIUM CHLORIDE 0.9% INJ PRN (06:40)
--- NOTE | 2019-12-05 06:50 | EKG Report ---
Test Performed on : 12/05/2019 06:32:49 AM Test Reason : chest pain Blood Pressure : / mmHG Vent. Rate : 059 BPM Atrial Rate : 059 BPM P-R Int : 140 ms QRS Dur : 090 ms QT Int : 418 ms P-R-T Axes : 050 079 069 degrees QTc Int : 413 ms Sinus bradycardia. with marked sinus arrhythmia. Otherwise normal ECG When compared with ECG of 04-DEC-2019 15:15, (Unconfirmed) No significant change was found Confirmed by Matt Harper MD ([id number]) on 12/07/2019 12:13:13 PM
--- NOTE | 2019-12-05 08:07 | EKG Report ---
Test Performed on : 12/04/2019 3:14:44 PM Test Reason : ED. NO EKG ORDER FOR MUSE Blood Pressure : / mmHG Vent. Rate : 078 BPM Atrial Rate : 078 BPM P-R Int : 148 ms QRS Dur : 092 ms QT Int : 424 ms P-R-T Axes : 074 082 066 degrees QTc Int : 483 ms Sinus rhythm. with marked sinus arrhythmia. Incomplete right bundle branch block Prolonged QT Abnormal ECG When compared with ECG of 04-DEC-2019 14:55, (Unconfirmed) premature atrial complexes. are no longer present QT has lengthened Unconfirmed Result
[2019-12-05] MEDS ORDERED: SEROQUEL PO SCH (09:00)
[2019-12-05] MEDS ORDERED: SODIUM CHLORIDE 0.9% INJ SCH (09:30)
[2019-12-05 10:38] LABS: BASO# 0.02 X1000 (0.0-0.2); BASO% 0.2 % (0.0-0.8); EOS# 0.01 X1000 (0.0-0.7); EOS% 0.1 % (0.0-10.0); HEMATOCRIT 35.1 % (37.0-47.0); HEMOGLOBIN 11.8 g/dL (12.0-16.0); LYMPH# 2.02 X1000 (1.2-3.4); MCHC 33.6 g/dL (33-37); MCV 95.1 FL (81-99); MONO# 0.93 X1000 (0.11-0.59); MONO% 8.3 % (1.7-9.3); MPV 11.1 FL (7.4-10.4); NEUT# 8.27 X1000 (1.4-6.5); NEUT% 73.4 % (42.2-75.2); PLT 193 X1000 (130-400); RBC 3.69 XMIL (4.2-5.4); WBC 11.25 X1000 (4.8-10.8)
[2019-12-05 10:42] LABS: AGAP 11; ALB/GLOB RATIO 1.7; ALBUMIN 3.9 g/dL (3.5-5.0); ALKALINE PHOSPHATASE 65 U/L (32-104); BUN 9 mg/dL (8-22); CALCIUM 8.3 mg/dL (8.8-10.2); CHLORIDE 108 mmol/L (98-107); COSMO 276; CREATININE 0.6 mg/dL (0.5-0.9); ESTIMATED GFR > 60; GLUCOSE 96 mg/dL (70-104); GOT 18 U/L (10-30); GPT 15 U/L (10-36); MAGNESIUM 1.6 mg/dL (1.5-2.7); POTASSIUM 3.8 mmol/L (3.5-5.1); SODIUM 139 mmol/L (136-145); TCO2 20 mmol/L (25-35); TOTAL BILIRUBIN 0.53 mg/dL (0.20-1.00); TOTAL PROTEIN 6.2 g/dL (6.3-8.3)
[2019-12-05] MEDS: ATARAX PO SCH ×3 (11:40→21:09)
[2019-12-05] MEDS: XANAX PO SCH ×3 (11:40→21:09)
[2019-12-05] MEDS: TYLENOL PO PRN (11:40)
[2019-12-05] MEDS: PEPCID IV SCH ×2 (11:40→21:10)
[2019-12-05 11:45] LABS: T4 4.99 ug/dL (4.60-12.00); TSH 0.51 uIUmL (0.27-4.20)
[2019-12-05] MEDS: CARAFATE PO SCH ×2 (12:59→21:09)
--- NOTE | 2019-12-05 13:59 | GASTROENTEROLOGY CONSULTATION ---
DATE: 12/05/2019 REASON FOR CONSULT: Nausea, vomiting, abdominal pain. HISTORY OF PRESENT ILLNESS: Ms. Pope is a 29-year-old female who presented to the hospital yesterday complaining of nausea, vomiting, abdominal pain all over with her emesis greenish yellow in color, abdominal pain rating it as 8/10 and describing it as cramping pain. Patient also complained of having diarrhea, but usually she has constipation. She denied any fever but did have some chills, shortness of breath and chest pain on the right side. The patient does have a history of marijuana abuse. She smokes 1 cigarette a day and drinks wine occasionally. The patient recently had an EGD done at [facility] and mentioned having gastritis. Patient mentioned that her abdominal pain is similar to what she had before she had a cholecystectomy done. Patient has denied noticing any blood in her stools or blood in her vomit. Her hemoglobin on admission was 14.3 and hematocrit was 42.6, today it is 11.3 and 35.5. Patient's abdomen and pelvis CT has shown a few prominent loops of small bowel in the upper abdomen that are nonspecific consider ileus. Chest x-ray has shown no evidence of acute pathology by plain radiology. Patient did mention that she does not have any history of any medical problems other than anxiety and depression, but currently she has been having high blood pressure. PAST MEDICAL HISTORY: Anxiety and depression. PAST SURGICAL HISTORY: Cholecystectomy and 2 C-sections. ALLERGIES: No known drug allergies. SOCIAL HISTORY: The patient is single. She has 2 kids. Smokes 1 cigarette a day, has wine occasionally and consumes marijuana on a daily basis. FAMILY HISTORY: Positive for Crohn disease and diverticulosis. HOME MEDICATIONS: Bentyl 20 mg p.o. every 6 hours, alprazolam 1 mg p.o. 3 times a day, Vistaril 25 mg p.o. 3 times a day, Zofran 4 mg p.o. every 4 hours as needed and Seroquel 1 tablet p.o. daily. REVIEW OF SYSTEMS: As per HPI. Otherwise 12 point review of system is negative. PHYSICAL EXAMINATION: Vital Signs: Temperature 98.2 degrees, pulse 62, respirations 16, blood pressure 93/59, oxygen saturation is 100% on room air, her weight is 180 pounds, BMI is 29.1 kg/m2. General: She is alert, oriented x3 and in no acute distress, answering questions appropriately. HEENT: Pale conjunctivae. No icterus. PERRL. Neck: Supple. Lungs: Clear to auscultation. Cardiovascular: Regular rate and rhythm. Abdomen: Soft, tender, nondistended, active bowel sounds heard in all 4 quadrants. Extremities: No clubbing, no cyanosis, no edema. Pedal pulses 2+ present bilaterally. Neurologic: Alert, oriented x3 nonfocal. Cranial nerves 2- 12 grossly intact. LAB: WBCs 11.25, RBC 3.69, hemoglobin 11.8, hematocrit 35.1, platelet count is 193,000. PT 13.1, INR is 0.98, sodium 139, potassium 3.8, chloride 108, carbon dioxide 20, anion gap 11, BUN 9, creatinine 0.6, glucose 96, calcium 8.3, magnesium 1.6, total bilirubin 0.53, AST 18, ALT 15, alkaline phosphatase 65, folate 8.8, vitamin B12 354, TSH 0.51, thyroxine T4 4.99, albumin is 3.9. Urinalysis has shown protein of 70, ketones of 80, moderate amount of blood. Toxicology has shown presumptive positive for cannabinoids. IMAGING: Chest x-ray has shown no evidence of acute pathology. Abdomen and pelvis CT has shown few prominent loops of small bowel in the upper abdomen that are nonspecific. Consider ileus, perhaps related to enteritis. IMPRESSION AND PLAN: Nausea and vomiting Marijuana abuse Ileus Anxiety and depression Abdominal pain PLAN: Ms. Pope is a 29-year-old female with a history of anxiety and depression. GI has been consulted for nausea, vomiting, and abdominal pain. The patient's abdomen and pelvis CT has shown prominent loops of small bowel in the upper abdomen. We have started her on MiraLAX 17 g twice a day. She is on Prilosec 40 mg p.o. twice a day, patient is also receiving Pepcid 20 mg IV twice a day and we started Carafate 1 g p.o. every 6 hours. For her abdominal cramps she is on Bentyl 10 mg p.o. twice a day as needed. Patient is currently receiving IV fluids, normal saline with potassium of 40 at 100 mL/hour. For her nausea and vomiting she is on Zofran 4 mg IV every 4 hours as needed. If the patient's abdominal pain, nausea and vomiting does not improve, we will plan to do an EGD. We will continue to monitor the patient and follow the plan of care per PCP. This plan was discussed with Dr. Alcazar. Thank you for your consult. Please call us for any further questions or concerns. Dictated by MING Allred for Zac Alcazar MD cc: Zac Alcazar MD I have seen and examined the patient myself and I agree with the above plan of care. Please call us with any questions or concerns. MTDD
--- NOTE | 2019-12-05 14:03 | PROGRESS NOTE ---
DATE: 12/05/2019 SUBJECTIVE: She still had nausea. She does feel a little bit better. GI has not seen her yet. OBJECTIVE: Temperature 98.2 degrees, pulse 62, respirations 16, blood pressure 93/59. Pupils are equal and round. Lungs are clear in all lung moore. Cardiovascular Examination: Regular rhythm and rate without murmur or S3. Abdomen is soft. Skin is warm and dry. ASSESSMENT AND PLAN: Admitted with nausea and vomiting. She does use marijuana. She has had numerous admissions for this. We are giving her Toradol for pain. The nausea seems better. She does suffer from anxiety and depression. She is on Bentyl 10 mg by mouth twice a day, Seroquel 50 mg at bedtime. She has a family history of Crohn's disease, so we will see. I do not think she had a colonoscopy, although she has had an esophagogastroduodenoscopy and she had her gallbladder taken out last year. We have her on Pepcid 20 mg intravenous every 12 hours. She takes Xanax 1 mg. I think she takes that 3 times a day. She is on Seroquel 50 mg a day, Atarax 25 mg, I think she takes that 3 times a day, Carafate 1 g intravenous every 6 hours. cc: Geraldo Chawla MD
[2019-12-05] MEDS ORDERED: BENTYL PO PRN (18:30)
[2019-12-05] MEDS: MIRALAX PO SCH (21:09)
[2019-12-05] MEDS: SEROQUEL PO SCH (21:09)
[2019-12-06] MEDS: NS + KCL 40 MEQ 1,000 ML IV SCH (01:01)
[2019-12-06] MEDS: CARAFATE PO SCH ×2 (04:07→08:36)
[2019-12-06] MEDS: PRILOSEC PO SCH (06:41)
[2019-12-06 07:38] VITALS: BP 106/64
[2019-12-06] MEDS: PEPCID IV SCH (08:34)
[2019-12-06] MEDS: MIRALAX PO SCH (08:34)
[2019-12-06] MEDS: XANAX PO SCH (08:34)
[2019-12-06] MEDS: ATARAX PO SCH (08:34)
[2019-12-06] MEDS: TORADOL IV PRN (08:41)
--- NOTE | 2019-12-06 12:36 | DISCHARGE SUMMARY ---
ADMISSION DATE: 12/04/2019 DISCHARGE DATE: 12/06/2019 HISTORY OF PRESENT ILLNESS: This is a 29-year-old, white female. She is followed by Dr. Zaki Sandhu. Does not have a primary care physician that she has seen recently. Reports that her gallbladder was taken out in March of 2019. That she has had trouble with abdominal bloating and ileus since that time, off and on. She has been admitted here. She was admitted back in May of 2019 with abdominal pain and bloating. Admitted in [place]. Claims that she quit smoking marijuana about a month and half ago to see if it would help but later, she admitted she still is smoking marijuana. She went to [facility]. Was admitted, it sounds like a couple days. They did an EGD but no colonoscopy. She has family history of Crohn's disease. She has been taking some stool softeners. PAST MEDICAL HISTORY: Significant for 2 sections back in the , history of anxiety and depression, and uses recreational THC. HOSPITAL COURSE: Admitted with an ileus, and given IV fluids and antiemetics. We continued her anxiety medications, Xanax 1 mg 3 times a day, and she takes Bentyl for abdominal cramping. Gastroenterology was consulted, Dr. Alcazar. She has a history of anxiety, depression. An abdominal and pelvic CT showed prominent loops of small bowel in the upper abdomen. Started her on Maalox 17 g twice a day and Prilosec 40 mg twice a day. The patient receiving Pepcid 20 mg IV a day and Carafate 1 g q.6 hours. She has abdominal cramps and she is on Bentyl 10 mg a day as needed. The patient recently receiving IV fluids and normal saline. He was planning to do an EGD and follow up plan of care with PCP. The patient reported that she felt better and she wanted to go home. We will let her go home. REVIEW OF HER LAB: Her CBC unremarkable. Electrolytes unremarkable. Liver transaminases unremarkable. DISCHARGE INSTRUCTIONS: She was eating and the nausea was controlled. Encourage her to stay away from THC. Her home medications are Xanax 1 mg t.i.d., Bentyl 20 mg q.6 hours, Restoril 25 mg t.i.d., and Seroquel, she takes I think 50 mg daily. She is insistent on going home and so we will let her go home on 12/06/2019. cc: Geraldo Chawla MD
--- NOTE | 2019-12-06 16:22 | GASTROENTEROLOGY PROGRESS NOTE ---
DATE: 12/06/2019 SUBJECTIVE: Ms. Pope is a 29-year-old female. She is resting in bed. Family is at the bedside. The patient has denied any complaints of nausea, vomiting. She did have some generalized abdominal tenderness. The patient has discharge orders to go home today. OBJECTIVE: Vital Signs: Temperature 98.3 degrees, pulse 68, respirations 18, blood pressure 109/67, oxygen saturation 98% on room air. The patient's weight is 180 pounds. BMI is 29.1 kg/m2. General: She is alert, oriented x3, and in no acute distress. HEENT: Pale conjunctivae. No icterus. PERRL. Neck: Supple. Lungs: Clear to auscultation. Cardiovascular: Regular rate and rhythm. Abdomen: Soft, nondistended, tender. Active bowel sounds heard in all 4 quadrants. Extremities: No clubbing. No cyanosis. No edema. Pedal pulses 2+, present bilaterally. Neurologic: She is alert and oriented x3. LABORATORY DATA: WBCs 11.25, RBC 3.69, hemoglobin 11.8, hematocrit 35.1, platelet count 193,000. Sodium 139, potassium 3.8, chloride 108, carbon dioxide 20, anion gap 11, BUN 9, creatinine 0.6, glucose 96, calcium 8.3, magnesium 1.6, total bilirubin 0.53, AST 18, ALT 15, alkaline phosphatase is 65. IMPRESSIONS AND PLAN: 1. Nausea and vomiting. 2. Abdominal pain. 3. Marijuana abuse. 4. Ileus. 5. Anxiety and depression. PLAN: Ms. Pope is a 29-year-old female with a history of anxiety and depression. GI has been following her for nausea, vomiting, abdominal pain. The patient's nausea and vomiting have been resolved. She does have some mild abdominal tenderness. The patient has discharge orders to go home today. We will follow her up as an outpatient in 4 to 6 weeks. This plan was discussed with Dr. Silva. Please call us for any further questions or concerns. Dictated by MING Allred for Corwin Silva MD MTDD
== END 2019-12-06 12:59 | disposition home or self-care (01) | DRG 390 ==
LOC: ED 11:25 → EDIPHOLD 16:36 → SUATTDRO 16:36 → EDIPHOLD 18:19 → 3N 19:53
PROVIDERS: ATTEND Emergency Medicine